=== PATIENT | female | born 1955 | race Caucasian/White ===

== ENCOUNTER 2017-02-13 09:48 | Emergency (ER) | payer OTHER ==
[~2017-02-13] VITALS: Ht 152.4 cm; Wt 70.0 kg
[~2017-02-13 09:48] MED LIST: ASPEC81 PO; BUPRTAB51 PO; CLXUNK PO; LPT40 PO; NTRSLP4 SL; PLV75 PO; TPRSR25 PO
[2017-02-13 09:50] VITALS: Ht 152.4 cm; Wt 70.0 kg
[2017-02-13] MEDS ORDERED: CITA40TA12 PO (10:16)
[2017-02-13] MEDS ORDERED: ASPCH81X PO (10:16)
[2017-02-13] MEDS ORDERED: METO25TA3 PO (10:16)
[2017-02-13] MEDS ORDERED: LOSA1TAB PO (10:16)
[2017-02-13] MEDS ORDERED: CLOP1TAB15 PO (10:16)
[2017-02-13] MEDS ORDERED: NTRGSL/4 UT (10:20)
--- NOTE | 2017-02-13 10:49 | EMERGENCY ROOM VISIT NOTE ---
History Report prepared by Claude: Aneat Messina Under the Supervision of: Dr. Dimitrios Paulson M.D. First contact with patient: 10:13 Chief Complaint: FALL Stated Complaint: FALL History of Present Illness The patient is a 61 year old female who presents to the Emergency Room with complaints of persistent back pain after falling this morning around 0800. She was in a [place] this morning and tripped and fell outside. She skidded after falling and scraped her forehead. She also had some epistaxis. She also has pain in her left hand and left knee. She denies any loss of consciousness. Her vision and hearing are normal currently. She denies any neck pain, chest pain, or abdominal pain. She reports that the medications she started taking after her heart attack cause her to bruise more easily. Source of History: patient Onset: this morning 0800 Position: back Quality: other (pain, fall) Timing: other (persistent) Associated Symptoms: No LOC, No abdominal pain, No chest pain, No neck pain Note: Pt reports epistaxis, left hand pain, left knee pain. Pt denies hearing or vision changes. Review of Systems All systems have been listed, reviewed, and are negative other than those previously mentioned. Please see Additional Medical History Sheet. Past Medical & Surgical Medical Problems: (1) Chest pain (2) Depression (3) Hx of sebaceous cyst (4) NSTEMI (non-ST elevated myocardial infarction) (5) Pneumonia (6) PTSD (post-traumatic stress disorder) Surgical Problems: (1) H/O breast surgery (2) H/O tubal ligation (3) S/P tonsillectomy Family History Cancer FATHER (brain CA) MOTHER (breast CA) Diabetes mellitus Heart disease Hypertension Social History Smoking Status: Never Smoker Alcohol Use: occasionally Drug Use: none Marital Status: in relationship Housing Status: lives with family Occupation Status: retired Current/Historical Medications Scheduled Aspirin (Aspirin Chewable), 81 MG PO DAILY Atorvastatin (Lipitor), 80 MG PO DAILY Bupropion Hcl (Wellbutrin Xl), 300 MG PO DAILY Citalopram Hydrobromide (Celexa), 40 MG PO DAILY Clopidogrel (Plavix), 75 MG PO DAILY Lorazepam (Ativan), 0.5 MG PO HS Losartan Potassium (Cozaar), 12.5 MG PO DAILY Metoprolol Succinate (Toprol Xl), 12.5 MG PO DAILY Scheduled PRN Acetaminophen (Tylenol), 1,000 MG PO UD PRN for Pain Albuterol Hfa (Ventolin Hfa), 2 PUFFS INH QID PRN for Wheezing Furosemide (Lasix), 20 MG PO DAILY PRN for SWELLING Nitroglycerin (Nitrostat), 0.4 MG UT PRN PRN for CHEST PAIN Allergies Coded Allergies: Topiramate (Verified Allergy, Unknown, blepharospsams, 02/13/17) Prednisone (Verified Adverse Reaction, Unknown, overly emotional reactions , 02/13/17) Physical Exam Vital Signs Date Time Temp Pulse Resp B/P Pulse Ox O2 Delivery O2 Flow Rate FiO2 02/13/17 11:54 36.6 59 18 163/83 96 02/13/17 09:50 36.6 63 18 153/82 96 Room Air Physical Exam GENERAL: Patient awake, alert, oriented x 3. Patient follows commands. Patient does not appear toxic. Patient is adequately hydrated and well- nourished. SKIN: No erythema, pallor, cyanosis or rash HEENT: Abrasions to the nose and left upper lip with significant swelling. Patient feels like teeth are chipped, but there are no obvious chips. No hemotympanum, Mccall's sign, or raccoon's sign. Neck: supple, nontender. Nose is slightly tender but no hematoma within the nose. No deviation of the nose. LUNGS: Clear to auscultation. No wheezes, no rales, no rhonchi. HEART: No murmurs. No gallops. No rubs ABDOMEN: No masses, no rebound, no hepatomegaly or splenomegaly. BACK: Tenderness near left scapula, no bruising noted on back. EXTREMITIES: Left knee slightly swollen, but full ROM. Left wrist abrasion with underlying tenderness. Bruising over her left 3rd, 4th, and 5th metacarpals and fingers. NEUROLOGIC: Cranial nerves II-XII within normal limits. No gross motor sensory function deficits. Medical Decision & Procedures ER Provider Diagnostic Interpretation: X ray results are stated below per my interpretation and the radiologist's interpretation. CHEST 2 VIEWS ROUTINE CLINICAL HISTORY: Scapular pain status post trauma COMPARISON STUDY: 05/21/2017 FINDINGS: The cardiac and mediastinal contours remain stable. There is no failure. There is no focal pulmonary consolidation. There are mid thoracic compression deformities which are likely old. There is a chronic deformity of the left humeral head and scapular glenoid. IMPRESSION: No active disease in the chest. Electronically signed by: Wayne Stern M.D. 02/13/2017 10:55 AM Dictated Date/Time: 02/13/2017 10:54 AM LEFT HAND MIN 3 VIEWS ROUTINE CLINICAL HISTORY: Left hand pain status post trauma COMPARISON: None. DISCUSSION: The bones are osteopenic. There are mild osteoarthritic changes present. There is a corticated ossicle adjacent the ulnar styloid. This is felt to be old. No acute fractures are evident. IMPRESSION: Mild degenerative change. Osteopenia. No acute fractures. Electronically signed by: Wayne Stern M.D. 02/13/2017 10:59 AM Dictated Date/Time: 02/13/2017 10:58 AM LEFT WRIST MIN 3 VIEWS ROUTINE CLINICAL HISTORY: Left wrist pain status post trauma COMPARISON: None. DISCUSSION: The bones are osteopenic. There is a corticated ossicle adjacent to the ulnar styloid. This is felt to be old. No acute fractures or dislocations are visualized. IMPRESSION: Osteopenia. No acute fractures. Electronically signed by: Wayne Stern M.D. 02/13/2017 10:58 AM Dictated Date/Time: 02/13/2017 10:57 AM Medications Administered Medications (Trade) Dose Ordered Sig/Jason Route Start Time Stop Time Status Last Admin Dose Admin Bacitracin (Bacitracin Oint) 1 appln NOW ONCE EXT 02/13/17 11:30 02/13/17 11:31 DC 02/13/17 11:46 1 APPLN ED Course 1014: Past medical records reviewed. The patient was evaluated in room A9B. A complete history and physical examination was performed. 1130: Bacitracin 1 appln EXT. 1123: Upon reevaluation, the patient appeared to have improvement of her symptoms. I discussed today's findings with her. She verbalized agreement of the treatment plan. She was discharged home. Medical Decision Differential diagnoses: rib fracture, fracture of wrist or hand, multiple contusions and abrasions. The patient fell and has multiple abrasions of her face, left wrist and left hand. X-rays were obtained but do not reveal any fracture dislocations or subluxations. Patient's tetanus status is up-to-date. Patient does not appear to have a nasal fracture. She has no signs of intracranial head injury or neck injury. Chest x-ray does not reveal a rib fracture hemopneumothorax or pneumothorax. I believe the patient is safe to return home. She is taking acetaminophen as needed for pain. She was given wound care instructions. Impression Primary Impression: Fall Additional Impression: Contusion of multiple sites Scribe Attestation The scribe's documentation has been prepared under my direction and personally reviewed by me in its entirety. I confirm that the note above accurately reflects all work, treatment, procedures, and medical decision making performed by me. Departure Information Dispostion Home / Self-Care Referrals Pushpa Singh D.O. (PCP) Patient Instructions ED Wound Care, [facility] Additional Instructions Apply ice intermittently over the next 48 hours. 650 mg of acetaminophen every 4 hours as needed for pain. Apply antibiotic ointment to your face daily. Problem Qualifiers
--- NOTE | 2017-02-13 10:57 | DIAGNOSTIC IMAGING REPORT ---
CHEST 2 VIEWS ROUTINE CLINICAL HISTORY: Scapular pain status post trauma COMPARISON STUDY: 05/21/2017 FINDINGS: The cardiac and mediastinal contours remain stable. There is no failure. There is no focal pulmonary consolidation. There are mid thoracic compression deformities which are likely old. There is a chronic deformity of the left humeral head and scapular glenoid. IMPRESSION: No active disease in the chest. Electronically signed by: Wayne Stern M.D. 02/13/2017 10:55 AM Dictated Date/Time: 02/13/2017 10:54 AM
--- NOTE | 2017-02-13 11:00 | DIAGNOSTIC IMAGING REPORT ---
LEFT WRIST MIN 3 VIEWS ROUTINE CLINICAL HISTORY: Left wrist pain status post trauma COMPARISON: None. DISCUSSION: The bones are osteopenic. There is a corticated ossicle adjacent to the ulnar styloid. This is felt to be old. No acute fractures or dislocations are visualized. IMPRESSION: Osteopenia. No acute fractures. Electronically signed by: Wayne Stern M.D. 02/13/2017 10:58 AM Dictated Date/Time: 02/13/2017 10:57 AM
--- NOTE | 2017-02-13 11:01 | DIAGNOSTIC IMAGING REPORT ---
LEFT HAND MIN 3 VIEWS ROUTINE CLINICAL HISTORY: Left hand pain status post trauma COMPARISON: None. DISCUSSION: The bones are osteopenic. There are mild osteoarthritic changes present. There is a corticated ossicle adjacent the ulnar styloid. This is felt to be old. No acute fractures are evident. IMPRESSION: Mild degenerative change. Osteopenia. No acute fractures. Electronically signed by: Wayne Stern M.D. 02/13/2017 10:59 AM Dictated Date/Time: 02/13/2017 10:58 AM
[2017-02-13] MEDS ORDERED: BACITRACIN OINT 15 GM TUBE EXT ONE (11:30)
[2017-02-13 11:54] VITALS: BP 163/83; PULSE 59; TEMP 36.6; O2SAT 96
[2017-02-28] MEDS ORDERED: LORA-741 PO (10:16)
[2017-02-28] MEDS ORDERED: ATOR-26 PO (10:16)
[2017-02-28] MEDS ORDERED: VNTHFA/IN INH (10:16)
[2017-02-28] MEDS ORDERED: FURO-85 PO (10:16)
[2017-02-28] MEDS ORDERED: ACET-1256 PO (10:16)
== END 2017-02-13 11:57 | disposition home or self-care (01) ==
LOC: C.EDB 09:49 → C.EDA 11:57
DX: T14.8 Other injury of unspecified body region (principal); W19.XXXA Unspecified fall, initial encounter; I25.2 Old myocardial infarction; F32.9 Major depressive disorder, single episode, unspecified; Z98.51 Tubal ligation status; Z79.82 Long term (current) use of aspirin; Z79.899 Other long term (current) drug therapy; Z98.890 Other specified postprocedural states; Z88.8 Allergy status to other drugs, medicaments and biological substances; Z80.9 Family history of malignant neoplasm, unspecified; Z83.3 Family history of diabetes mellitus; Z82.49 Family history of ischemic heart disease and other diseases of the circulatory system

== ENCOUNTER 2017-02-28 16:21 | Emergency (ER) | payer OTHER ==
[~2017-02-28] VITALS: Ht 157.5 cm; Wt 71.2 kg
[~2017-02-28 16:21] MED LIST changes: +ACET-1256 PO; +ASPCH81X PO; -ASPEC81 PO; +ATOR-26 PO; +CITA40TA12 PO; +CLOP1TAB15 PO; -CLXUNK PO; +FURO-85 PO; +LORA-741 PO; +LOSA1TAB PO; -LPT40 PO; +METO25TA3 PO; +NTRGSL/4 UT; -NTRSLP4 SL; -PLV75 PO; -TPRSR25 PO; +VNTHFA/IN INH
[2017-02-28 16:33] VITALS: TEMP 37.1; Ht 157.5 cm; Wt 71.2 kg
[2017-02-28] MEDS ORDERED: CYCLOBENZAPRINE HCL 10 MG TAB PO STA (17:23)
[2017-02-28] MEDS ORDERED: HYDROCODONE/ACETAMOPHEN 5/325MG TAB PO STA (17:23)
[2017-02-28] MEDS ORDERED: KETOROLAC TROMETHAMINE 60 MG/2 ML VIAL IM STA (17:25)
[2017-02-28] MEDS ORDERED: CITA40TA4 PO (17:36)
[2017-02-28] MEDS ORDERED: TPRSR/25 PO (17:36)
[2017-02-28] MEDS ORDERED: NITR0.4S UT (17:36)
[2017-02-28] MEDS ORDERED: WLLXL300 PO (17:36)
[2017-02-28] MEDS ORDERED: PLV75 PO (17:36)
--- NOTE | 2017-02-28 17:38 | EMERGENCY ROOM VISIT NOTE ---
History Report prepared by Claude: Aneta Messina Under the Supervision of: Dr. Marla Pate M.D. First contact with patient: 17:08 Chief Complaint: NECK PAIN Stated Complaint: PAIN THE WHOLE RIGHT SIDE OF BODY History of Present Illness The patient is a 61 year old female who presents to the Emergency Room with complaints of persistent right sided pain of the body starting 1 week ago. She presents to the ED by EMS. She describes the pain as sharp and says it feels like there is a srinivas through her body. She reports pain in the right side of her neck and right wrist and elbow down to her fingertips. The pain worsens with movement. She also has pain down to her mid back. She started having a headache a few days ago. She reports some weakness in her right arm and her fingers are numb. She has been taking Tylenol to no significant relief. Two weeks ago, she was walking outside when she fell onto her left side. She fractured her left wrist, but did not injure her right side. She denies any chronic medical problems. Source of History: patient Onset: 1 week ago Position: other (right side of body) Quality: sharp Timing: other (persistent) Modifying Factors (Worsening): movement Associated Symptoms: + back pain, + headache, + neck pain (right side) Note: Pt reports right arm pain and weakness, finger numbness. Review of Systems See HPI for pertinent positives & negatives. A total of 10 systems reviewed and were otherwise negative. Past Medical & Surgical Medical Problems: (1) Chest pain (2) Depression (3) Hx of sebaceous cyst (4) NSTEMI (non-ST elevated myocardial infarction) (5) Pneumonia (6) PTSD (post-traumatic stress disorder) Surgical Problems: (1) H/O breast surgery (2) H/O tubal ligation (3) S/P tonsillectomy Family History Cancer FATHER (brain CA) MOTHER (breast CA) Diabetes mellitus Heart disease Hypertension Social History Smoking Status: Never Smoker Alcohol Use: occasionally Drug Use: none Marital Status: in relationship Housing Status: lives with family Occupation Status: retired Current/Historical Medications Scheduled Aspirin (Aspirin Ec), 81 MG PO DAILY Atorvastatin (Lipitor), 80 MG PO DAILY Bupropion HCl (Bupropion HCl Xl), 300 MG PO DAILY Citalopram (Citalopram Hydrobromide), 40 MG PO DAILY Clopidogrel Bisulfate (Clopidogrel), 75 MG PO DAILY Lorazepam (Ativan), 0.5 MG PO HS Losartan Potassium (Losartan Potassium), 12.5 MG PO DAILY Metoprolol Succinate (Metoprolol Succinate ER), 12.5 MG PO DAILY Scheduled PRN Acetaminophen (Tylenol), 1,000 MG PO UD PRN for Pain Albuterol Hfa (Ventolin Hfa), 2 PUFFS INH QID PRN for Wheezing Cyclobenzaprine Hcl (Flexeril), 5 MG PO TID PRN for Muscle Spasms Furosemide (Lasix), 20 MG PO DAILY PRN for Swelling Hydrocodone/Acetaminophen 5MG/325MG ([place] 5MG/325MG), 1 TABLET PO Q6 PRN for Pain Nitroglycerin (Nitrostat), 0.4 MG UT UD PRN for Chest Pain Allergies Coded Allergies: Topiramate (Verified Allergy, Unknown, blepharospsams, 02/13/17) Prednisone (Verified Adverse Reaction, Unknown, overly emotional reactions , 02/13/17) Physical Exam Vital Signs Date Time Temp Pulse Resp B/P Pulse Ox O2 Delivery O2 Flow Rate FiO2 02/28/17 19:33 62 16 128/70 96 02/28/17 18:17 59 18 127/68 96 02/28/17 16:33 37.1 66 16 138/85 99 Room Air Physical Exam Vital signs reviewed. General: Generally well-appearing, in some discomfort, in no significant distress. HEENT: No scleral icterus, PERRLA, neck supple. Atraumatic. Cardiovascular: Regular rate and rhythm, no extra sounds. Pulmonary: Clear to auscultation bilaterally, normal work of breathing. Abdomen: Soft, nontender, nondistended, positive bowel sounds. Musculoskeletal: Tenderness along the right trapezius, slight torticollis, pain with any movement of the head, ROM limited due to pain. Neurologic: Patient awake alert and oriented x 3, full strength in all 4 extremities. Cranial nerves 2 through 12 grossly intact. Skin: Warm, dry, no rash Medical Decision & Procedures ER Provider Diagnostic Interpretation: Radiology results as stated below per my review and radiologist interpretation: CT HEAD WITHOUT CONTRAST (CT) CLINICAL HISTORY: Severe headache COMPARISON STUDY: No previous studies for comparison. TECHNIQUE: Axial CT of the brain is performed from the vertex to the skull base. IV contrast was not administered for this examination. CT DOSE: FINDINGS: No intra or extra-axial mass lesions are visualized. There is no CT evidence of acute cortical infarction. There is no evidence of midline shift. There is no acute hemorrhage. No calvarial fractures are visualized. There are patchy minimal matter hypodensities likely on a small vessel basis. There is mild bifrontal atrophy. There is no evidence of pathologic ventricular dilatation. There is no evidence of acute sinusitis IMPRESSION: No acute intracranial findings Electronically signed by: Wayne Stern M.D. 02/28/2017 6:06 PM Dictated Date/Time: 02/28/2017 6:[address] OF THE CERVICAL SPINE CLINICAL HISTORY: Neck pain. Trauma., Torticollis. COMPARISON STUDY: No previous studies for comparison. CT DOSE: 935.54 mGy.cm TECHNIQUE: CT scan of the cervical spine was performed from the skull base to the thoracic inlet. Images are reviewed in the axial, sagittal, and coronal planes. IV contrast was not administered for this examination. FINDINGS: There is a 3 cm lower pole left lobe thyroid nodule. Nonemergent thyroid ultrasonography is recommended in follow-up. There is no evidence of the thorax. There is a minimal inferior left-sided mastoid effusion The prevertebral soft tissues are normal. No fractures or traumatic subluxations are visualized. There is minimal anterolisthesis of C4 on C5. This is felt to be degenerative. There are multilevel degenerative changes most pronounced the C5-6 level. IMPRESSION: 1. No evidence of acute fracture or traumatic subluxation 2. 3 cm lower pole left lobe thyroid nodule. Nonemergent thyroid ultrasonography is recommended in follow-up Electronically signed by: Wayne Stern M.D. 02/28/2017 6:13 PM Dictated Date/Time: 02/28/2017 6:10 PM Medications Administered Medications (Trade) Dose Ordered Sig/Jason Route Start Time Stop Time Status Last Admin Dose Admin Cyclobenzaprine HCl (Flexeril Tab) 5 mg NOW STAT PO 02/28/17 17:23 02/28/17 17:25 DC 02/28/17 17:38 5 MG Acetaminophen/ Hydrocodone Bitart ([place] 5/325 Tab) 1 tab NOW STAT PO 02/28/17 17:23 02/28/17 17:26 DC 02/28/17 17:37 1 TAB Ketorolac Tromethamine (Toradol Inj) 60 mg NOW STAT IM 02/28/17 17:25 02/28/17 17:27 DC 02/28/17 17:38 60 MG Acetaminophen/ Hydrocodone Bitart ([place] 5/325mg Home Pack) 1 homepack UD ONCE PO 02/28/17 19:15 02/28/17 19:16 DC 02/28/17 19:27 1 HOMEPACK ED Course 171: Past medical records reviewed. The patient was evaluated in room B11B. A complete history and physical examination was performed. 172: Prednisone 60 mg PO, [place] 5/325 Tab 1 tab PO, Flexeril Tab 5 mg PO. 1724: Toradol Inj 60 mg IM. 1899: Upon reevaluation, the patient appeared to have improvement of her symptoms. I discussed findings with her. She verbalized agreement of the treatment plan. She was discharged home. 1914: Acetaminophen/Hydrocodone Bitart 1 homepack PO. Medical Decision Differential diagnosis: muscle spasm, radiculopathy, disc herniation, spinal stenosis, infectious etiology. This patient was evaluated and appeared to be in some discomfort. Patient was given 5 mg of Flexeril, one tablet [place] and IM Toradol. CT scan of the head and neck was performed and reveals no evidence of acute findings. Patient was informed of the findings. She was discharged with a prescription for [place] and Flexeril. She will continue ibuprofen as needed for pain with food. She'll follow-up with primary care physician for reevaluation return to the ER for worsening of symptoms or any medical concerns. [place] Drug Monitoring Program Search Results: patient reviewed within database, no issues identified Impression Primary Impression: Torticollis, acute Scribe Attestation The scribe's documentation has been prepared under my direction and personally reviewed by me in its entirety. I confirm that the note above accurately reflects all work, treatment, procedures, and medical decision making performed by me. Departure Information Dispostion Home / Self-Care Prescriptions Hydrocodone/Acetaminophen 5MG/325MG ([place] 5MG/325MG) Tab 1 TABLET PO Q6 Y for Pain, #20 TAB Prov: Marla Pate M.D. 02/28/17 Cyclobenzaprine Hcl (FLEXERIL) 5 Mg Tab 5 MG PO TID Y for Muscle Spasms, #20 TAB Prov: Marla Pate M.D. 02/28/17 Referrals Pushpa Singh D.O. (PCP) Forms HOME CARE DOCUMENTATION FORM, IMPORTANT VISIT INFORMATION, WORK / SCHOOL INSTRUCTIONS Patient Instructions My [facility] Additional Instructions Diagnosis: Torticollis Flexeril 5 mg 3 times daily as needed for muscular spasm. [place] 5 mg every 6 hours as needed for pain. Ibuprofen 600 mg every 6 hours as needed for pain with food. Drink plenty of clear fluids. Warm compresses and gentle stretching. Follow-up with your physician this week for reevaluation return to the ER for worsening of symptoms or any medical concerns.
[2017-02-28] MEDS ORDERED: CZR25 PO (17:39)
[2017-02-28] MEDS ORDERED: ASPI81TA28 PO (17:39)
--- NOTE | 2017-02-28 18:07 | DIAGNOSTIC IMAGING REPORT ---
CT HEAD WITHOUT CONTRAST (CT) CLINICAL HISTORY: Severe headache COMPARISON STUDY: No previous studies for comparison. TECHNIQUE: Axial CT of the brain is performed from the vertex to the skull base. IV contrast was not administered for this examination. CT DOSE: FINDINGS: No intra or extra-axial mass lesions are visualized. There is no CT evidence of acute cortical infarction. There is no evidence of midline shift. There is no acute hemorrhage. No calvarial fractures are visualized. There are patchy minimal matter hypodensities likely on a small vessel basis. There is mild bifrontal atrophy. There is no evidence of pathologic ventricular dilatation. There is no evidence of acute sinusitis IMPRESSION: No acute intracranial findings Electronically signed by: Wayne Stern M.D. 02/28/2017 6:06 PM Dictated Date/Time: 02/28/2017 6:05 PM
--- NOTE | 2017-02-28 18:14 | DIAGNOSTIC IMAGING REPORT ---
CT OF THE CERVICAL SPINE CLINICAL HISTORY: Neck pain. Trauma., Torticollis. COMPARISON STUDY: No previous studies for comparison. CT DOSE: 935.54 mGy.cm TECHNIQUE: CT scan of the cervical spine was performed from the skull base to the thoracic inlet. Images are reviewed in the axial, sagittal, and coronal planes. IV contrast was not administered for this examination. FINDINGS: There is a 3 cm lower pole left lobe thyroid nodule. Nonemergent thyroid ultrasonography is recommended in follow-up. There is no evidence of the thorax. There is a minimal inferior left-sided mastoid effusion The prevertebral soft tissues are normal. No fractures or traumatic subluxations are visualized. There is minimal anterolisthesis of C4 on C5. This is felt to be degenerative. There are multilevel degenerative changes most pronounced the C5-6 level. IMPRESSION: 1. No evidence of acute fracture or traumatic subluxation 2. 3 cm lower pole left lobe thyroid nodule. Nonemergent thyroid ultrasonography is recommended in follow-up Electronically signed by: Wayne Stern M.D. 02/28/2017 6:13 PM Dictated Date/Time: 02/28/2017 6:10 PM
[2017-02-28] MEDS ORDERED: HYDR-5688 PO (19:12)
[2017-02-28] MEDS ORDERED: CYCL5TAB PO (19:12)
[2017-02-28] MEDS ORDERED: NORCO 5/325MG HOME PACK PO ONE (19:15)
[2017-02-28 19:33] VITALS: BP 128/70; PULSE 62; O2SAT 96
== END 2017-02-28 19:37 | disposition home or self-care (01) ==
LOC: EDBD 16:21 → C.EDB 16:23
DX: M43.6 Torticollis (principal); F32.9 Major depressive disorder, single episode, unspecified; I25.2 Old myocardial infarction; Z98.51 Tubal ligation status; Z98.890 Other specified postprocedural states; Z79.82 Long term (current) use of aspirin; Z79.899 Other long term (current) drug therapy; Z80.9 Family history of malignant neoplasm, unspecified; Z83.3 Family history of diabetes mellitus; Z82.49 Family history of ischemic heart disease and other diseases of the circulatory system; Z88.8 Allergy status to other drugs, medicaments and biological substances

== ENCOUNTER → 2017-05-05 | Outpatient (CLI) | payer OTHER ==
[~2017-05-05] MED LIST changes: -ASPCH81X PO; +ASPI81TA28 PO; -BUPRTAB51 PO; -CITA40TA12 PO; +CITA40TA4 PO; -CLOP1TAB15 PO; +CZR25 PO; +HYDR-5688 PO; -LOSA1TAB PO; -METO25TA3 PO; +NITR0.4S UT; -NTRGSL/4 UT; +PLV75 PO; +TPRSR/25 PO; +WLLXL300 PO
--- NOTE | 2017-05-05 08:29 | DIAGNOSTIC IMAGING REPORT ---
DOUBLE CONTRAST BARIUM ESOPHAGRAM CLINICAL HISTORY: Dysphagia with solids. COMPARISON STUDY: No priors. TECHNIQUE: A standard air contrast barium esophagram is performed. Multiple spot images of the esophagus are acquired both upright and prone. FINDINGS: The patient swallowed barium and the barium pill without difficulty. The mucosal pattern is normal. There is no evidence of intrinsic or extrinsic mass lesion. No aspiration was seen. The gastroesophageal junction distended normally. Gastroesophageal reflux was observed during the examination. There is a small hiatal hernia. Fluoroscopy time: 1.1 minutes. Fluoroscopic images: 24 IMPRESSION: 1. The esophagus is morphologically normal. The patient swallowed barium and the barium pill without difficulty. 2. Gastroesophageal reflux was observed. 3. Small hiatal hernia. Electronically signed by: Cj Hansen M.D. 05/05/2017 8:28 AM Dictated Date/Time: 05/05/2017 8:27 AM
== END | disposition home or self-care (01) ==
LOC: C.RAD 07:30
PROVIDERS: ATTEND Otolaryngology
DX: R13.10 Dysphagia, unspecified (principal); E04.9 Nontoxic goiter, unspecified; R22.1 Localized swelling, mass and lump, neck

== ENCOUNTER 2017-11-25 22:35 | Emergency (ER) | payer OTHER ==
[~2017-11-25] VITALS: Ht 152.4 cm; Wt 72.6 kg
[~2017-11-25 22:35] MED LIST changes: -HYDR-5688 PO
[2017-11-25 22:39] VITALS: Ht 152.4 cm; Wt 72.6 kg
[2017-11-25] MEDS ORDERED: SODIUM CHLORIDE 0.9% 1000ML 1,000 ML IV STA (23:52)
[2017-11-25] MEDS ORDERED: BISACODYL 10 MG SUPP PR STA (23:52)
[2017-11-25] MEDS ORDERED: SODIUM CHLORIDE 0.9% 500ML 500 ML IV STA (23:52)
[2017-11-25] MEDS ORDERED: SALI0.6510 NAE (23:56)
--- NOTE | 2017-11-26 00:11 | EMERGENCY ROOM VISIT NOTE ---
History Report prepared by Claude: Hayden Day Under the Supervision of: Dr. Marla Pate M.D. First contact with patient: 23:50 Chief Complaint: GI ASSESSMENT Stated Complaint: CRAMPING, DIARRHEA, FECAL IMPACTION? History of Present Illness The patient is a 62 year old female who presents to the Emergency Room with complaints of persistent constipation for the past several days. The patient states that she had surgery on her thyroid on November 16, and she states that she does not remember the last time she had a bowel movement. She states that she only took 4 pain pills. She states that she is having intermittent abdominal pain, and she states that she feels like she has to defecate, but she is unable to. She is also having some rectal pain. The patient states that she has tried 2 fleets enemas, MiraLax, and Dulcolax PO. She states that she has never had a problem with her bowels in the past. Source of History: patient Onset: the past while Position: other (global) Quality: other (constipation) Timing: other (persistent) Associated Symptoms: + abdominal pain Note: Associated symptoms: Rectal pain. Review of Systems See HPI for pertinent positives & negatives. A total of 10 systems reviewed and were otherwise negative. Past Medical & Surgical Medical Problems: (1) Chest pain (2) Depression (3) Hx of sebaceous cyst (4) NSTEMI (non-ST elevated myocardial infarction) (5) Pneumonia (6) PTSD (post-traumatic stress disorder) Surgical Problems: (1) H/O breast surgery (2) H/O tubal ligation (3) S/P tonsillectomy Family History Cancer FATHER (brain CA) MOTHER (breast CA) Diabetes mellitus Heart disease Hypertension Social History Smoking Status: Former Smoker Alcohol Use: occasionally Drug Use: none Marital Status: , in relationship Housing Status: lives with family Occupation Status: retired Current/Historical Medications Scheduled Aspirin (Aspirin Ec), 81 MG PO DAILY Atorvastatin (Lipitor), 80 MG PO DAILY Bupropion HCl (Bupropion HCl Xl), 300 MG PO DAILY Citalopram (Citalopram Hydrobromide), 40 MG PO DAILY Losartan Potassium (Losartan Potassium), 12.5 MG PO DAILY Metoprolol Succinate (Metoprolol Succinate ER), 12.5 MG PO DAILY Scheduled PRN Acetaminophen (Tylenol), 500 MG PO Q6 PRN for Pain Albuterol Hfa (Ventolin Hfa), 2 PUFFS INH QID PRN for Wheezing Furosemide (Lasix), 20 MG PO DAILY PRN for Swelling Nitroglycerin (Nitrostat), 0.4 MG UT UD PRN for Chest Pain Saline (Ralls Nasal [place]), 2 SPRAYS IGOR Q1H PRN for DRYNESS Allergies Coded Allergies: Topiramate (Verified Allergy, Unknown, blepharospsams, 11/25/17) Prednisone (Verified Adverse Reaction, Unknown, overly emotional reactions , 11/25/17) Physical Exam Vital Signs Date Time Temp Pulse Resp B/P (MAP) Pulse Ox O2 Delivery O2 Flow Rate FiO2 11/26/17 05:32 36.8 79 20 142/90 97 11/26/17 05:21 79 20 142/90 97 Room Air 11/26/17 04:15 86 91 11/26/17 04:01 144/78 11/26/17 04:00 85 94 11/26/17 03:45 86 95 11/26/17 03:30 131/83 11/26/17 02:36 85 18 149/75 93 Room Air 11/26/17 01:41 149/75 96 Room Air 11/25/17 23:22 86 19 147/ 93 Room Air 11/25/17 22:39 36.8 103 20 137/83 95 Room Air Physical Exam Vital signs reviewed. General: Well-appearing female, in some discomfort. HEENT: No scleral icterus, PERRLA, neck supple. Atraumatic. Cardiovascular: Regular rate and rhythm, no extra sounds. Pulmonary: Clear to auscultation bilaterally, normal work of breathing. Abdomen: Suprapubic tenderness into the left lower quadrant. Soft, nondistended , positive bowel sounds. Rectal: Pain on rectal exam with a ball of stool palpated in the vault. Musculoskeletal: Atraumatic, no peripheral edema. Neurologic: Patient awake alert and oriented x 3. Skin: Warm, dry, no rash Medical Decision & Procedures ER Provider Diagnostic Interpretation: X-ray results as stated below per interpretation by me: Abdomen 2 View: Fecal retention, no obstruction, no FA Radiology results as stated below per my review and radiologist interpretation: CT ABDOMEN & PELVIS With Contrast: There is fecal distention of the distal colon suggestive of impaction. Perirectal/presacral edema. Moderate colonic stool in remainder of colon. No bowel obstruction. No evidence for appendicitis. Hiatal hernia. Fat-containing left diaphragmatic hernia. Suspected fibroid uterus and other incidental findings. Radiologist: Ck Gunter M.D Laboratory Results 11/26/17 00:22 Red Blood Count 4.63, Mean Corpuscular Volume 93.7, Mean Corpuscular Hemoglobin 32.2, Mean Corpuscular Hemoglobin Concent 34.3, Mean Platelet Volume 9.2, Neutrophils (%) (Auto) 72.1, Lymphocytes (%) (Auto) 18.4, Monocytes (%) (Auto) 8.0, Eosinophils (%) (Auto) 1.0, Basophils (%) (Auto) 0.3, Neutrophils # (Auto) 7.74, Lymphocytes # (Auto) 1.97, Monocytes # (Auto) 0.86, Eosinophils # (Auto) 0.11, Basophils # (Auto) 0.03 11/26/17 00:22 11/26/17 01:14 Test 11/26/17 00:22 11/26/17 01:14 White Blood Count 10.73 K/uL (4.8-10.8) Red Blood Count 4.63 M/uL (4.2-5.4) Hemoglobin 14.9 g/dL (12.0-16.0) Hematocrit 43.4 % (37-47) Mean Corpuscular Volume 93.7 fL (80-100) Mean Corpuscular Hemoglobin 32.2 pg (25-34) Mean Corpuscular Hemoglobin Concent 34.3 g/dl (32-36) Platelet Count 278 K/uL (130-400) Mean Platelet Volume 9.2 fL (7.4-10.4) Neutrophils (%) (Auto) 72.1 % Lymphocytes (%) (Auto) 18.4 % Monocytes (%) (Auto) 8.0 % Eosinophils (%) (Auto) 1.0 % Basophils (%) (Auto) 0.3 % Neutrophils # (Auto) 7.74 K/uL (1.4-6.5) Lymphocytes # (Auto) 1.97 K/uL (1.2-3.4) Monocytes # (Auto) 0.86 K/uL (0.11-0.59) Eosinophils # (Auto) 0.11 K/uL (0-0.5) Basophils # (Auto) 0.03 K/uL (0-0.2) RDW Standard Deviation 43.6 fL (36.4-46.3) RDW Coefficient of Variation 12.8 % (11.5-14.5) Immature Granulocyte % (Auto) 0.2 % Immature Granulocyte # (Auto) 0.02 K/uL (0.00-0.02) Anion Gap 9.0 mmol/L (3-11) Est Creatinine Clear Calc Drug Dose 53.2 ml/min Estimated GFR () 73.4 Estimated GFR (Non- 63.3 BUN/Creatinine Ratio 16.4 (10-20) Calcium Level 9.3 mg/dl (8.5-10.1) Total Bilirubin 1.4 mg/dl (0.2-1) Alanine Aminotransferase (ALT/SGPT) 26 U/L (12-78) Alkaline Phosphatase 87 U/L (45-117) Total Protein 7.7 gm/dl (6.4-8.2) Albumin 3.9 gm/dl (3.4-5.0) Lipase 101 U/L (73-393) Direct Bilirubin 0.3 mg/dl (0-0.2) Aspartate Amino Transf (AST/SGOT) 11 U/L (15-37) Laboratory results per my review. Medications Administered Medications (Trade) Dose Ordered Sig/Jason Route Start Time Stop Time Status Last Admin Dose Admin Sodium Chloride 500 ml @ 999 mls/hr Q31M STAT IV 11/25/17 23:52 11/26/17 00:22 DC 11/26/17 00:23 999 MLS/HR Sodium Chloride 1,000 ml @ 150 mls/hr Q6H40M STAT IV 11/25/17 23:52 11/26/17 06:31 DC 11/26/17 00:24 150 MLS/HR Bisacodyl (Dulcolax Supp) 10 mg NOW STAT OH 11/25/17 23:52 11/25/17 23:55 DC 11/26/17 00:23 10 MG Miscellaneous (Soap Suds Enema) 1 ea NOW STAT OH 11/26/17 02:54 11/26/17 02:56 DC 11/26/17 04:42 1 ED Course 2350: Past medical records reviewed. The patient was evaluated in room B11. A complete history and physical examination was performed. 2352: Dulcolax Supp 10mg OH, Sodium Chloride 1000 ml @ 150 mls/hr IV, Sodium Chloride 500 ml @ 999 mls/hr IV 0254: Soap Suds Enema OH 0257: I reevaluated the patient, and I updated her on the treatment plan. 0540: Upon reevaluation, the patient appeared to have improvement of her symptoms. I discussed findings with her. She verbalized agreement of the treatment plan. She was discharged home. Medical Decision Differential diagnoses include: diverticulitis, constipation, bowel obstruction , UTI, and kidney stone. This pt was evaluated and appeared to be in no distress. IV access was obtained and lab work was drawn. Pt was hydrated with NSS. Abd XR is concerning for fecal retention, but with the pt's tender LLQ a CT was ordered to r/o diverticulitis. This study reveals a fecal impaction of the rectum. Pt was unable to tolerate a manual disimpaction on my initial exam. She was given a Dulcolax rectal suppository. A soap suds enema was given with large results. Pt tolerated the procedure without difficulty. Pt was advised to use miralax daily for BM. She will f/u with her PCP this week and return to the ED for worsening of symptoms or any medical concerns. Medication Reconcilliation Current Medication List: was personally reviewed by me Blood Pressure Screening Patient's blood pressure: Elevated blood pressure Blood pressure disposition: Elevated BP felt to be situational Impression Primary Impression: Constipation Scribe Attestation The scribe's documentation has been prepared under my direction and personally reviewed by me in its entirety. I confirm that the note above accurately reflects all work, treatment, procedures, and medical decision making performed by me. Departure Information Dispostion Home / Self-Care Referrals Pushpa Singh D.O. (PCP) Forms HOME CARE DOCUMENTATION FORM, IMPORTANT VISIT INFORMATION Patient Instructions Constipation, [facility] Additional Instructions Diagnosis: Constipation Increase the fiber and water in your diet. MiraLAX 1 capful daily as needed for a bowel movement. Follow-up with your physician this week for reevaluation. Return to the ER for worsening of symptoms or any medical concerns.
[2017-11-26 00:34] LABS: BASO % 0.3 %; BASO ABS # 0.03 K/uL (0-0.2); EOS ABS # 0.11 K/uL (0-0.5); HEMATOCRIT 43.4 % (37-47); HEMOGLOBIN 14.9 g/dL (12.0-16.0); IG# 0.02 K/uL (0.00-0.02); LYMPH % 18.4 %; LYMPH ABS # 1.97 K/uL (1.2-3.4); MEAN CELL VOLUME 93.7 fL (80-100); MEAN CORPUSCULAR HEMOGLOBIN 32.2 pg (25-34); MEAN CORPUSCULAR HGB CONC 34.3 g/dl (32-36); MEAN PLATELET VOLUME 9.2 fL (7.4-10.4); MONO ABS # 0.86 K/uL (0.11-0.59); NEUT % 72.1 %; NEUT ABS # 7.74 K/uL (1.4-6.5); PLATELET COUNT 278 K/uL (130-400); RED CELL DISTRIBUTION WIDTH CV 12.8 % (11.5-14.5); RED CELL DISTRIBUTION WIDTH SD 43.6 fL (36.4-46.3); WHITE BLOOD COUNT 10.73 K/uL (4.8-10.8)
[2017-11-26] MEDS ORDERED: OPTIRAY 320 IV PRN (01:00)
[2017-11-26 01:03] LABS: ALBUMIN 3.9 gm/dl (3.4-5.0); ALKALINE PHOSPHATASE 87 U/L (45-117); ALT/SGPT 26 U/L (12-78); BLOOD UREA NITROGEN 16 mg/dl (7-18); CALCIUM 9.3 mg/dl (8.5-10.1); CARBON DIOXIDE 25 mmol/L (21-32); CREATININE 0.95 mg/dl (0.60-1.20); GLUCOSE 143 mg/dl (70-99); LIPASE 101 U/L (73-393); SODIUM 135 mmol/L (136-145); TOTAL PROTEIN 7.7 gm/dl (6.4-8.2)
[2017-11-26 01:50] LABS: POTASSIUM 3.5 mmol/L (3.5-5.1)
[2017-11-26] MEDS ORDERED: SOAP SUDS ENEMA PR STA (02:54)
[2017-11-26 05:32] VITALS: BP 142/90; PULSE 79; TEMP 36.8; O2SAT 97
--- NOTE | 2017-11-26 06:52 | DIAGNOSTIC IMAGING REPORT ---
ABDOMEN 2VIEW W/PA CHEST RTN CLINICAL HISTORY: constipation , lower abd pain COMPARISON STUDY: 02/11/2017 FINDINGS: The erect chest reveals no free intraperitoneal air. There is no focal pulmonary consolidation. There is a small linear area of scar/atelectasis at the left lung base. Advanced arthritic changes involve the left shoulder. Erect and supine views the abdomen reveal gas within large and small bowel loops. There are scattered air-fluid levels. There are no transition zones indicate bowel obstruction. IMPRESSION: Nonspecific bowel gas pattern with scattered air-fluid levels. No conventional radiographic evidence of bowel obstruction Electronically signed by: Wayne Stern M.D. 11/26/2017 6:51 AM Dictated Date/Time: 11/26/2017 6:50 AM
--- NOTE | 2017-11-26 07:43 | DIAGNOSTIC IMAGING REPORT ---
CT SCAN OF THE ABDOMEN AND PELVIS WITH IV CONTRAST CLINICAL HISTORY: Lower abdominal pain. Rectal pain. COMPARISON STUDY: Abdominal radiographs dated 11/26/2017. TECHNIQUE: Following the IV administration of 93 cc of Optiray 320, CT scan of the abdomen and pelvis is performed from the lung bases to the proximal femora. Images are reviewed in the axial, sagittal, and coronal planes. IV contrast was administered without complication. A dose lowering technique was utilized adhering to the principles of ALARA. CT DOSE: 476.07 mGy.cm FINDINGS: Lung bases: The heart is normal in size and without pericardial effusion. A fat-containing Bochdalek hernia is seen at the left lung base. Foci of linear atelectasis are present in the lower lobes. No airspace consolidation or pleural effusion is identified. There is a tiny hiatal hernia. Liver: The contrast-enhanced liver is normal in size, contour, and attenuation. There is no intrahepatic biliary ductal dilatation. The hepatic veins and portal veins are patent. Gallbladder: Unremarkable. Spleen: Normal in size and attenuation. Pancreas: Unremarkable. Adrenal glands: Unremarkable. Kidneys: The contrast enhanced kidneys demonstrate mild cortical atrophy and are without hydronephrosis. The kidneys enhance symmetrically. Scattered subcentimeter cortical hypodensities likely represent cysts but are too small for definitive characterization. Abdominal vasculature: The abdominal aorta is normal in course and caliber noting moderate atherosclerotic calcification. Bowel: There is rectosigmoid fecal impaction. There is mild rectal wall thickening and hyperemia. Perirectal inflammation is identified. Moderate fecal retention is seen throughout the remainder of the colon. No bowel obstruction is seen. The appendix is well-visualized and normal. Peritoneum: There is no intraperitoneal free air or abdominal ascites. Lymphadenopathy: None. Pelvic viscera: The bladder is normal as visualized. Uterine fibroids are suggested. No adnexal lesion is seen. Skeletal structures: The skeletal structures are osteopenic. Mild lumbosacral spondylosis is identified. There is a mild compression deformity of T8. No lytic or blastic lesions are seen. There are healed right-sided rib fractures. IMPRESSION: 1. There is rectosigmoid fecal impaction with evidence of proctitis. 2. Moderate constipation is seen throughout the remainder of the colon. No bowel obstruction is identified. 3. Suspect uterine fibroids. 4. Additional findings as above. Electronically signed by: Cj Hansen M.D. 11/26/2017 7:41 AM Dictated Date/Time: 11/26/2017 7:37 AM
== END 2017-11-26 05:33 | disposition home or self-care (01) ==
LOC: C.EDB 22:36
DX: K59.00 Constipation, unspecified (principal); F32.9 Major depressive disorder, single episode, unspecified; I25.2 Old myocardial infarction; Z87.01 Personal history of pneumonia (recurrent); Z87.891 Personal history of nicotine dependence; Z98.51 Tubal ligation status; Z90.89 Acquired absence of other organs; Z98.890 Other specified postprocedural states; Z80.3 Family history of malignant neoplasm of breast; Z80.8 Family history of malignant neoplasm of other organs or systems; Z83.3 Family history of diabetes mellitus; Z82.49 Family history of ischemic heart disease and other diseases of the circulatory system; Z79.82 Long term (current) use of aspirin; Z79.899 Other long term (current) drug therapy

== ENCOUNTER 2020-09-30 13:07 | Observation (INO) ==
[2020-09-30] MEDS ORDERED: fentaNYL citrate 100 MCG/2 ML VIAL IV STA (13:18)
--- NOTE | 2020-09-30 13:20 | Emergency Department Note ---
Impression & Plan Positive cardiac stress test, Chest pain ED Provider Note NAME: ROSALVA BLOOD AGE: 65 SEX: F : 1955 ARRIVES VIA: Ambulance INFORMANT: Patient, ED PROVIDER(S): Mango Loera MD Chief Complaint: Chest pain, positive stress test HPI: Patient was seen due to concerns for chest pain. The patient states chest pain began last evening with centralized nonradiating. The patient has had some diaphoresis and nausea without vomiting. Patient denies infectious symptoms. Patient was seen in the outpatient setting today where the patient did have a positive stress echo on the treadmill. The patient did receive a full dose aspirin and 3 total nitro with only mild improvement in her chest pain. The patient has had associated nausea and sweatiness but no vomiting. The patient did have a beer last night but denies any tobacco use. The patient is a prior history of 2 stents and does see Dr. Singh with cardiology on a regular basis. The patient does take a baby aspirin. Patient denies fevers, chills, shortness of breath or leg swelling. No prior history of DVT or PE. ROS: See HPI for pertinent positives and negatives. A total of 10 systems were reviewed and otherwise negative. Past medical history: See below Surgical history: See below Social history: See below Physical Exam: GENERAL: Wearing glasses and a mask. EYE EXAM: Normal conjunctiva. PERRL, no anisocoria and EOM's grossly intact w/o pain. NECK: Supple, no nuchal rigidity, no adenopathy, non-tender. No signs of meningismus. LUNGS: Clear to auscultation. Normal chest wall mechanics. HEART: NSR, no MRG. ABDOMEN: Abdomen soft, non-tender, normo-active bowel sounds, no masses, no rebound or guarding. BACK: No CVA TTP. SKIN: No rashes and no bruising. UPPER EXTREMITIES: Upper extremities are grossly normal. LOWER EXTREMITIES: Grossly normal, no edema. Negative Homans' sign bilaterally. NEURO EXAM: A&O x3, cranial nerves II-XII grossly intact, normal speech, moves all 4 extremities on command w/o issue. Differential diagnoses: Cardiac ischemia, aortic dissection, pulmonary embolism, pneumothorax, pneumonia, pericarditis, myocarditis, esophageal rupture, GERD, cholecystitis, pancreatitis, musculoskeletal, as well as other pathologies. Course: Patient was seen and evaluated the bedside. Full history physical exam was performed. EKG: Normal sinus rhythm, rate 86, normal intervals, normal axis, Q waves inferiorly, no obvious ST changes. Potentially very slight depression in the lateral leads. Imaging Studies: Radiology results as stated below per my review in the radiologist's interpretation: XR chest 1V portable CLINICAL HISTORY: Atypical chest pain COMPARISON STUDY: 06/24/2019 FINDINGS: The cardiac and mediastinal contours remain stable. There is no failure. There is no focal pulmonary consolidation. There are no pleural effusions. 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 There is a thoracolumbar scoliosis.[ IMPRESSION: No active disease in the chest. ACT 112: Negative or not required by law. Electronically signed by: Wayne Stern M.D. 09/30/2020 1:37 PM Dictated: 09/30/206 Transcribed: 09/30/201335 Cardiac monitoring: An order was placed for continuous cardiac monitoring. The monitor shows a rate of 87 with sinus rhythm. MDM: Patient does present with concern for recent positive stress echocardiogram was referred here for diagnostic heart cath. The patient still has some mild chest discomfort associated fentanyl and IV fluids. I did speak to on-call cardi ologist Dr. Hedrick who is aware the patient. I did also speak with Radha Wlof PA-C under Dr. Fry. The patient was to be admitted to [facility]. Chest x-ray unremarkable. EKG with no obvious ischemic change but does have some Q waves and may be very slight depressions in the lateral leads. And already did receive a full dose aspirin and 3 nitro in route. Patient has normal white count H&H and platelet count. Kidney function is unremarkable. The patient did have borderline elevated glucose troponin is not detectable. Covid negative. Past Med/Surg History Medical History CAD (coronary artery disease) PCI to prox LAD and LCx 2015 Depression Dyslipidemia NSTEMI (non-ST elevated myocardial infarction) Surgical History H/O breast surgery "1976- breast, Lactating Adenoma" H/O tubal ligation Hx of heart artery stent S/P tonsillectomy Family History Mother , 45 Breast cancer Social History Smoking Status: Former smoker packs per day: 2; Years Smoked: 15; Smoking End Date: 1978; Hx Alcohol Use: Yes Alcohol type: wine Hx Substance Use: No Preferred Language: Moroccan Communication Ability: Effective Beliefs That Will Affect Care: None marital status: Current Living Situation: Family Other Information That Helps Us Care for You: No Feels Safe at Home: Yes Safety Concerns: Feels Safe At This Time Assistive Devices: Glasses Allergies Allergies Allergy/AdvReac Type Severity Reaction Status Date / Time topiramate Allergy Unknown blepharosps Verified 11/25/17 23:47 ams prednisone AdvReac Unknown overly Verified 11/25/17 23:47 emotional reactions Home Meds Home Medications Medication Instructions Recorded Confirmed aspirin [Aspir-81] 81 mg PO DAILY 09/30/20 09/30/20 atorvastatin 80 mg PO HS 09/30/20 09/30/20 bupropion HCl 300 mg PO QAM 09/30/20 09/30/20 cholecalciferol (vitamin D3) 25 mcg PO DAILY 09/30/20 09/30/20 clonazepam 0.5 mg PO TID PRN 09/30/20 09/30/20 levothyroxine 25 mcg PO DAILY 09/30/20 09/30/20 losartan 12.5 mg PO DAILY 09/30/20 09/30/20 metformin 850 mg PO DAILY 09/30/20 09/30/20 metoprolol succinate 25 mg PO DAILY 09/30/20 09/30/20 spironolactone 100 mg PO DAILY 09/30/20 09/30/20 venlafaxine 75 mg PO DAILY 09/30/20 09/30/20 Results & Data (ED) Vital Signs Vital Signs - 24 hr 09/30/20 13:17 09/30/20 13:19 09/30/20 13:34 Temperature 36.9 C Temperature Source Oral Pulse Rate 87 84 84 Pulse Rate [Apical] Pulse Rate [Left Brachial] Pulse Rate from SpO2 Sensor 84 85 Respiratory Rate 16 12 14 Respiratory Effort / Characteristics Non-Labored Spontaneous Respiratory Depth Normal Respiratory Pattern Blood Pressure 126/87 126/87 Blood Pressure [Left Arm] Blood Pressure Mean 100 95 Blood Pressure Mean [Left Arm] Blood Pressure Position Lying Pulse Oximetry 97 97 94 Oxygen Delivery Method Room Air Sepsis Recent Fever Within 48 Hours No Sepsis New/Unexplained Change in Mental Status No Sepsis Action Taken by Nursing No Action Required 09/30/20 13:40 09/30/20 13:47 09/30/20 13:48 Temperature Temperature Source Pulse Rate 91 H 86 89 Pulse Rate [Apical] Pulse Rate [Left Brachial] Pulse Rate from SpO2 Sensor 90 85 88 Respiratory Rate 17 18 18 Respiratory Effort / Characteristics Respiratory Depth Respiratory Pattern Blood Pressure 110/81 Blood Pressure [Left Arm] Blood Pressure Mean 88 Blood Pressure Mean [Left Arm] Blood Pressure Position Pulse Oximetry 98 96 98 Oxygen Delivery Method Sepsis Recent Fever Within 48 Hours Sepsis New/Unexplained Change in Mental Status Sepsis Action Taken by Nursing 09/30/20 13:50 09/30/20 13:51 09/30/20 14:00 Temperature Temperature Source Pulse Rate 89 82 81 Pulse Rate [Apical] Pulse Rate [Left Brachial] Pulse Rate from SpO2 Sensor 89 84 82 Respiratory Rate 18 19 19 Respiratory Effort / Characteristics Respiratory Depth Respiratory Pattern Blood Pressure 119/78 108/76 Blood Pressure [Left Arm] Blood Pressure Mean 96 98 Blood Pressure Mean [Left Arm] Blood Pressure Position Pulse Oximetry 96 95 95 Oxygen Delivery Method Sepsis Recent Fever Within 48 Hours Sepsis New/Unexplained Change in Mental Status Sepsis Action Taken by Nursing 09/30/20 14:01 09/30/20 14:10 09/30/20 14:11 Temperature Temperature Source Pulse Rate 82 79 81 Pulse Rate [Apical] Pulse Rate [Left Brachial] Pulse Rate from SpO2 Sensor 82 79 81 Respiratory Rate 19 15 26 H Respiratory Effort / Characteristics Respiratory Depth Respiratory Pattern Blood Pressure 123/87 Blood Pressure [Left Arm] Blood Pressure Mean 96 Blood Pressure Mean [Left Arm] Blood Pressure Position Pulse Oximetry 95 97 97 Oxygen Delivery Method Sepsis Recent Fever Within 48 Hours Sepsis New/Unexplained Change in Mental Status Sepsis Action Taken by Nursing 09/30/20 14:20 09/30/20 14:21 09/30/20 14:30 Temperature Temperature Source Pulse Rate 75 74 74 Pulse Rate [Apical] Pulse Rate [Left Brachial] Pulse Rate from SpO2 Sensor 73 74 72 Respiratory Rate 12 12 12 Respiratory Effort / Characteristics Respiratory Depth Respiratory Pattern Blood Pressure 127/77 117/79 Blood Pressure [Left Arm] Blood Pressure Mean 83 90 Blood Pressure Mean [Left Arm] Blood Pressure Position Pulse Oximetry 93 94 94 Oxygen Delivery Method Sepsis Recent Fever Within 48 Hours Sepsis New/Unexplained Change in Mental Status Sepsis Action Taken by Nursing 09/30/20 14:31 09/30/20 14:40 09/30/20 14:41 Temperature Temperature Source Pulse Rate 71 72 71 Pulse Rate [Apical] Pulse Rate [Left Brachial] Pulse Rate from SpO2 Sensor 71 72 70 Respiratory Rate 14 14 14 Respiratory Effort / Characteristics Respiratory Depth Respiratory Pattern Blood Pressure 117/74 Blood Pressure [Left Arm] Blood Pressure Mean 84 Blood Pressure Mean [Left Arm] Blood Pressure Position Pulse Oximetry 95 95 93 Oxygen Delivery Method Sepsis Recent Fever Within 48 Hours Sepsis New/Unexplained Change in Mental Status Sepsis Action Taken by Nursing 09/30/20 14:52 09/30/20 15:35 09/30/20 15:50 Temperature Temperature Source Pulse Rate 69 Pulse Rate [Apical] 78 78 Pulse Rate [Left Brachial] Pulse Rate from SpO2 Sensor Respiratory Rate 14 16 16 Respiratory Effort / Characteristics Non-Labored Non-Labored Respiratory Depth Normal Normal Respiratory Pattern Regular Regular Blood Pressure 117/74 Blood Pressure [Left Arm] 116/72 114/83 Blood Pressure Mean Blood Pressure Mean [Left Arm] 86 93 Blood Pressure Position Pulse Oximetry 94 93 95 Oxygen Delivery Method Room Air Room Air Room Air Sepsis Recent Fever Within 48 Hours Sepsis New/Unexplained Change in Mental Status Sepsis Action Taken by Nursing 09/30/20 16:05 09/30/20 16:18 Temperature 36.5 C Temperature Source Oral Pulse Rate Pulse Rate [Apical] 77 Pulse Rate [Left Brachial] 80 Pulse Rate from SpO2 Sensor Respiratory Rate 16 18 Respiratory Effort / Characteristics Non-Labored Respiratory Depth Normal Respiratory Pattern Regular Blood Pressure Blood Pressure [Left Arm] 132/80 105/61 Blood Pressure Mean Blood Pressure Mean [Left Arm] 97 75 Blood Pressure Position Pulse Oximetry 95 98 Oxygen Delivery Method Room Air Room Air Sepsis Recent Fever Within 48 Hours Sepsis New/Unexplained Change in Mental Status Sepsis Action Taken by [facility] Medications Current Medication List: was personally reviewed by me Laboratory Data Attestation: I reviewed the patient's lab results. Result diagrams: 09/30/20 13:45 09/30/20 13:45 Lab Results 09/30/20 09/30/20 09/30/20 Range/Units 13:45 13:45 13:45 WBC 7.65 (4.8-10.8) K/uL RBC 4.37 (4.2-5.4) M/uL Hgb 14.1 (12.0-16.0) g/dL Hct 41.1 (37-47) % MCV 94.1 (80-100) fL MCH 32.3 (25-34) pg MCHC 34.3 (32-36) g/dL RDW Std Deviation 43.8 (36.4-46.3) fL RDW Coeff of Feliciano 12.8 (11.5-14.5) % Plt Count 285 (130-400) K/uL MPV 8.9 (7.4-10.4) fL Immature Gran % (Auto) 0.3 % Neut % (Auto) 69.0 % Lymph % (Auto) 20.5 % Lawrence % (Auto) 8.2 % Eos % (Auto) 1.7 % Baso % (Auto) 0.3 % Neut # (Auto) 5.28 (1.4-6.5) K/uL Lymph # (Auto) 1.57 (1.2-3.4) K/uL Lawrence # (Auto) 0.63 H (0.11-0.59) K/uL Eos # (Auto) 0.13 (0-0.5) K/uL Baso # (Auto) 0.02 (0-0.2) K/uL Immature Gran # (Auto) 0.02 (0.00-0.02) K/uL PT 11.3 (9.0-12.0) Seconds INR 1.1 (0.9-1.1) APTT 26.2 (21.0-31.0) Seconds PTT Ratio 0.9 Sodium 136 (136-145) mmol/L Potassium 4.2 (3.5-5.1) mmol/L Chloride 103 (98-107) mmol/L Carbon Dioxide 25 (21-32) mmol/L Anion Gap 8.0 (3-11) BUN 22 H (7-18) mg/dl Creatinine 0.97 (0.6-1.2) mg/dl Est Cr Clr Drug Dosing 48.7 ml/min Est GFR ( Amer) 70.0 Est GFR (Non-Af Amer) 60.4 BUN/Creatinine Ratio 22.6 H (10-20) Glucose 144 H (70-99) mg/dl POC Glucose (70-99) mg/dl Calcium 9.4 (8.5-10.1) mg/dl Phosphorus 2.8 (2.5-4.9) mg/dl Magnesium 1.8 (1.8-2.4) mg/dl Total Bilirubin 1.2 H (0.2-1) mg/dl AST 18 (15-37) U/L ALT 34 (12-78) U/L Alkaline Phosphatase 64 (45-117) U/L Troponin I < 0.015 (0-0.045) ng/ml Total Protein 7.5 (6.4-8.2) gm/dl Albumin 3.9 (3.4-5.0) gm/dl Globulin 3.6 (2.5-4.0) gm/dl Albumin/Globulin Ratio 1.1 (0.9-2) Lipase 102 (73-393) U/L COVID-19 Eval Order SARS-CoV-2, RNA, NAAT (NEGATIVE) 09/30/20 09/30/20 09/30/20 Range/Units 14:05 14:05 14:05 WBC (4.8-10.8) K/uL RBC (4.2-5.4) M/uL Hgb (12.0-16.0) g/dL Hct (37-47) % MCV (80-100) fL MCH (25-34) pg MCHC (32-36) g/dL RDW Std Deviation (36.4-46.3) fL RDW Coeff of Feliciano (11.5-14.5) % Plt Count (130-400) K/uL MPV (7.4-10.4) fL Immature Gran % (Auto) % Neut % (Auto) % Lymph % (Auto) % Lawrence % (Auto) % Eos % (Auto) % Baso % (Auto) % Neut # (Auto) (1.4-6.5) K/uL Lymph # (Auto) (1.2-3.4) K/uL Lawrence # (Auto) (0.11-0.59) K/uL Eos # (Auto) (0-0.5) K/uL Baso # (Auto) (0-0.2) K/uL Immature Gran # (Auto) (0.00-0.02) K/uL PT (9.0-12.0) Seconds INR (0.9-1.1) APTT (21.0-31.0) Seconds PTT Ratio Sodium (136-145) mmol/L Potassium (3.5-5.1) mmol/L Chloride (98-107) mmol/L Carbon Dioxide (21-32) mmol/L Anion Gap (3-11) BUN (7-18) mg/dl Creatinine (0.6-1.2) mg/dl Est Cr Clr Drug Dosing ml/min Est GFR ( Amer) Est GFR (Non-Af Amer) BUN/Creatinine Ratio (10-20) Glucose (70-99) mg/dl POC Glucose (70-99) mg/dl Calcium (8.5-10.1) mg/dl Phosphorus (2.5-4.9) mg/dl Magnesium (1.8-2.4) mg/dl Total Bilirubin (0.2-1) mg/dl AST (15-37) U/L ALT (12-78) U/L Alkaline Phosphatase (45-117) U/L Troponin I (0-0.045) ng/ml Total Protein (6.4-8.2) gm/dl Albumin (3.4-5.0) gm/dl Globulin (2.5-4.0) gm/dl Albumin/Globulin Ratio (0.9-2) Lipase (73-393) U/L COVID-19 Eval Order Covid19 [facility] SARS-CoV-2, RNA, NAAT NEGATIVE NEGATIVE (NEGATIVE) 09/30/20 Range/Units 16:24 WBC (4.8-10.8) K/uL RBC (4.2-5.4) M/uL Hgb (12.0-16.0) g/dL Hct (37-47) % MCV (80-100) fL MCH (25-34) pg MCHC (32-36) g/dL RDW Std Deviation (36.4-46.3) fL RDW Coeff of Feliciano (11.5-14.5) % Plt Count (130-400) K/uL MPV (7.4-10.4) fL Immature Gran % (Auto) % Neut % (Auto) % Lymph % (Auto) % Lawrence % (Auto) % Eos % (Auto) % Baso % (Auto) % Neut # (Auto) (1.4-6.5) K/uL Lymph # (Auto) (1.2-3.4) K/uL Lawrence # (Auto) (0.11-0.59) K/uL Eos # (Auto) (0-0.5) K/uL Baso # (Auto) (0-0.2) K/uL Immature Gran # (Auto) (0.00-0.02) K/uL PT (9.0-12.0) Seconds INR (0.9-1.1) APTT (21.0-31.0) Seconds PTT Ratio Sodium (136-145) mmol/L Potassium (3.5-5.1) mmol/L Chloride (98-107) mmol/L Carbon Dioxide (21-32) mmol/L Anion Gap (3-11) BUN (7-18) mg/dl Creatinine (0.6-1.2) mg/dl Est Cr Clr Drug Dosing ml/min Est GFR ( Amer) Est GFR (Non-Af Amer) BUN/Creatinine Ratio (10-20) Glucose (70-99) mg/dl POC Glucose 103 H (70-99) mg/dl Calcium (8.5-10.1) mg/dl Phosphorus (2.5-4.9) mg/dl Magnesium (1.8-2.4) mg/dl Total Bilirubin (0.2-1) mg/dl AST (15-37) U/L ALT (12-78) U/L Alkaline Phosphatase (45-117) U/L Troponin I (0-0.045) ng/ml Total Protein (6.4-8.2) gm/dl Albumin (3.4-5.0) gm/dl Globulin (2.5-4.0) gm/dl Albumin/Globulin Ratio (0.9-2) Lipase (73-393) U/L COVID-19 Eval Order SARS-CoV-2, RNA, NAAT (NEGATIVE) Administered Medications Insulin Aspart (Insulin Aspart 100 Units/Ml 3 Ml Pen) 0 units SC ACHS [facility] Stop: 10/30/20 16:29 Last Admin: 09/30/20 17:33 Dose: 1 units Documented by: [id number] Cosigned by: [id number] Levothyroxine Sodium (Levothyroxine Sodium 25 Mcg Tablet) 25 mcg PO DAILYBB [facility] Stop: 10/30/20 16:59 Last Admin: 09/30/20 17:31 Dose: Not Given Documented by: [id number] Metoprolol Succinate (Metoprolol Succ 25mg Ext Rel Tab) 25 mg PO DAILY [facility] Stop: 10/30/20 16:59 Last Admin: 09/30/20 17:32 Dose: 25 mg Documented by: [id number] Pantoprazole Sodium (Pantoprazole 40 Mg Tab) 40 mg PO QAM [facility] Stop: 10/30/20 16:59 Last Admin: 09/30/20 17:32 Dose: 40 mg Documented by: [id number] Spironolactone (Spironolactone 100 Mg Tab) 100 mg PO DAILY [facility] Stop: 10/30/20 16:59 Last Admin: 09/30/20 17:32 Dose: 100 mg Documented by: [id number] Venlafaxine HCl (Venlafaxine Hcl Xr 75 Mg Capxr) 75 mg PO DAILY [facility] Stop: 10/30/20 16:59 Last Admin: 09/30/20 17:32 Dose: 75 mg Documented by: [id number] Discontinued Medications Fentanyl Citrate (Fentanyl Citrate 100 Mcg/2 Ml Vial) 25 mcg IV NOW [facility] Stop: 09/30/20 13:19 Last Admin: 09/30/20 13:44 Dose: 25 mcg Documented by: [id number] Fentanyl Citrate (Fentanyl Citrate 100 Mcg/2 Ml Vial) Confirm Administered Dose 100 mcg .ROUTE .STK-MED ONE Stop: 09/30/20 15:03 Last Admin: 09/30/20 16:54 Dose: Not Given Documented by: [id number] Heparin Sodium (Porcine) (Heparin (Porcine) 1000 Unit/Ml 10 Ml (Legal Transcriber Use Only)) Confirm Administered Dose 10,000 units .ROUTE .STK-MED ONE Stop: 09/30/20 15:03 Last Admin: 09/30/20 16:54 Dose: Not Given Documented by: [id number] Heparin Sodium/Sodium Chloride (Heparin In Nss Infusion 1000 Unit/500 Ml (2 U/Ml) Bag) Confirm Administered Dose 3,000 units IV .STK-MED ONE Stop: 09/30/20 15:04 Last Admin: 09/30/20 16:54 Dose: Not Given Documented by: [id number] Sodium Chloride (Nss) 500 mls @ 250 mls/hr IV .Q2H [facility] Stop: 10/30/20 13:29 Last Admin: 09/30/20 16:55 Dose: Not Given Documented by: [id number] Infusion: 09/30/20 16:55 Dose: 0 mls/hr Documented by: [id number] Admin: 09/30/20 13:44 Dose: 250 mls/hr Documented by: [id number] Midazolam HCl (Midazolam Hcl 1 Mg/Ml 2ml Vial) Confirm Administered Dose 2 mg .ROUTE .STK-MED ONE Stop: 09/30/20 15:04 Last Admin: 09/30/20 16:55 Dose: Not Given Documented by: [id number] Nicardipine HCl (Nicardipine Hcl Inj 2.5 Mg/Ml 10 Ml Amp) Confirm Administered Dose 25 mg .ROUTE .STK-MED ONE Stop: 09/30/20 15:03 Last Admin: 09/30/20 16:54 Dose: Not Given Documented by: [id number] Nitroglycerin/Dextrose (Nitroglycerin/D5w 100mcg/Ml 20ml Syr) Confirm Administered Dose 2,000 mcg .ROUTE .STK-MED ONE Stop: 09/30/20 15:04 Last Admin: 09/30/20 16:54 Dose: Not Given Documented by: [id number] Discharge Plan Visit Data Chief Complaint: Cardiac Assessment ED Provider: Mango Loera Discharge Problem: Positive cardiac stress test, Chest pain Patient Disposition: Admitted As Inpatient Discharge Instructions Interventions: ED Discharge Assessment Last Done: 09/30/20 14:52
--- NOTE | 2020-09-30 13:36 | Cardiology Consultation ---
Date of Consultation September 30, 2020 Assessment & Plan (1) Unstable angina: (2) CAD (coronary artery disease): (3) Abnormal stress test: (4) Type 2 diabetes mellitus: (5) PTSD (post-traumatic stress disorder): Patient with continued waxing and waning chest discomfort at rest. Some relief with sublingual nitroglycerin. Currently relatively hypotensive and to be given IV fluids. Rapid Covid test and routine blood work sent. We will plan on proceeding to cardiac catheterization pending laboratory studies. Patient is in agreement with plan. History of Present Illness Reason for Consultation: unstable angina/abnormal stress test Requesting Physician: Dr. Fry Attending Physician: Dr. Fry History of Present Illness Mrs. Zuleta is a very pleasant 65-year-old woman who routinely follows with Dr. Castillo of our cardiology practice. She presented to our office today with complaints of substernal chest discomfort and dysphagia. She states that she feels like there is a pork chop stuck in her throat with exertion. She underwent stress testing which was suggestive of ischemia in the circumflex territory and she was transferred to [facility] emergency department. She was having some chest discomfort prior to the test which she ranked as 4 out of 10. At peak heart rate she ran chest pain is 8 out of 10 and received nitroglycerin in our office. EMS was summoned and upon arrival to the emergency department she still rated her discomfort as a 6 out of 10. She was given sublingual nitroglycerin which caused some transient hypotension which improved with IV fluids. She is to be given fentanyl at this time for further pain control. Allergies Allergy/AdvReac Type Severity Reaction Status Date / Time topiramate Allergy Unknown blepharosps Verified 11/25/17 23:47 ams prednisone AdvReac Unknown overly Verified 11/25/17 23:47 emotional reactions Home Medications Medication Instructions Recorded Confirmed Type aspirin [Aspir-81] 81 mg PO DAILY 09/30/20 09/30/20 History atorvastatin 80 mg PO HS 09/30/20 09/30/20 History bupropion HCl 300 mg PO QAM 09/30/20 09/30/20 History cholecalciferol (vitamin D3) 25 mcg PO DAILY 09/30/20 09/30/20 History clonazepam 0.5 mg PO TID PRN 09/30/20 09/30/20 History levothyroxine 25 mcg PO DAILY 09/30/20 09/30/20 History losartan 12.5 mg PO DAILY 09/30/20 09/30/20 History metformin 850 mg PO DAILY 09/30/20 09/30/20 History metoprolol succinate 25 mg PO DAILY 09/30/20 09/30/20 History spironolactone 100 mg PO DAILY 09/30/20 09/30/20 History venlafaxine 75 mg PO DAILY 09/30/20 09/30/20 History Patient History Medical History CAD (coronary artery disease) PCI to prox LAD and LCx 2015 Depression Dyslipidemia NSTEMI (non-ST elevated myocardial infarction) Surgical History H/O breast surgery "1976- breast, Lactating Adenoma" H/O tubal ligation Hx of heart artery stent S/P tonsillectomy Social History Smoking Status: Former smoker packs per day: 2; Years Smoked: 15; Smoking End Date: 1978; Preferred Language: Macanese marital status: Current Living Situation: Family Feels Safe at Home: Yes Review of Systems Review of Systems: All systems reviewed & are unremarkable except as noted in HPI & below Physical Exam Physical Exam: General: Awake, alert and oriented x 3. Mildly anxious and rather pale in appearance HEENT: Normocephalic, atraumatic. Pupils equal, round and reactive to light and accommodation. Extraocular muscles are intact. Anicteric sclera. Moist mucous membranes. Neck: No JVD. No bruit. Cardiovascular: Regular. Positive S-4. Normal S-1 and S-2. No S-3. No murmurs or rubs. Pulmonary: Clear to auscultation B/L. No rales, rhonchi or wheezing Abdomen: Bowel sounds x 4, soft. No rebound, guarding or tenderness. No organomegaly. Extremities: No clubbing, cyanosis or edema. +2 pedal pulses bilaterally. Skin: Warm and dry. Results & Data ([facility]) Laboratory Results Laboratory Results - last 24 hr 09/30/20 09/30/20 09/30/20 13:45 13:45 13:45 WBC 7.65 RBC 4.37 Hgb 14.1 Hct 41.1 MCV 94.1 MCH 32.3 MCHC 34.3 RDW Std Deviation 43.8 RDW Coeff of Feliciano 12.8 Plt Count 285 MPV 8.9 Immature Gran % (Auto) 0.3 Neut % (Auto) 69.0 Lymph % (Auto) 20.5 Walton % (Auto) 8.2 Eos % (Auto) 1.7 Baso % (Auto) 0.3 Neut # (Auto) 5.28 Lymph # (Auto) 1.57 Walton # (Auto) 0.63 H Eos # (Auto) 0.13 Baso # (Auto) 0.02 Immature Gran # (Auto) 0.02 PT 11.3 INR 1.1 APTT 26.2 PTT Ratio 0.9 Sodium 136 Potassium 4.2 Chloride 103 Carbon Dioxide 25 Anion Gap 8.0 BUN 22 H Creatinine 0.97 Est Cr Clr Drug Dosing 48.7 Est GFR ( Amer) 70.0 Est GFR (Non-Af Amer) 60.4 BUN/Creatinine Ratio 22.6 H Glucose 144 H Calcium 9.4 Phosphorus 2.8 Magnesium 1.8 Total Bilirubin 1.2 H AST 18 ALT 34 Alkaline Phosphatase 64 Troponin I < 0.015 Total Protein 7.5 Albumin 3.9 Globulin 3.6 Albumin/Globulin Ratio 1.1 Lipase 102 COVID-19 Eval Order SARS-CoV-2, RNA, NAAT 09/30/20 09/30/20 09/30/20 14:05 14:05 14:05 WBC RBC Hgb Hct MCV MCH MCHC RDW Std Deviation RDW Coeff of Feliciano Plt Count MPV Immature Gran % (Auto) Neut % (Auto) Lymph % (Auto) Walton % (Auto) Eos % (Auto) Baso % (Auto) Neut # (Auto) Lymph # (Auto) Walton # (Auto) Eos # (Auto) Baso # (Auto) Immature Gran # (Auto) PT INR APTT PTT Ratio Sodium Potassium Chloride Carbon Dioxide Anion Gap BUN Creatinine Est Cr Clr Drug Dosing Est GFR ( Amer) Est GFR (Non-Af Amer) BUN/Creatinine Ratio Glucose Calcium Phosphorus Magnesium Total Bilirubin AST ALT Alkaline Phosphatase Troponin I Total Protein Albumin Globulin Albumin/Globulin Ratio Lipase COVID-19 Eval [facility] SARS-CoV-2, RNA, NAAT NEGATIVE NEGATIVE
--- NOTE | 2020-09-30 13:38 | XRay Report ---
XR chest 1V portable CLINICAL HISTORY: Atypical chest pain COMPARISON STUDY: 06/24/2019 FINDINGS: The cardiac and mediastinal contours remain stable. There is no failure. There is no focal pulmonary consolidation. There are no pleural effusions. 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 There is a tho racolumbar scoliosis.[ IMPRESSION: No active disease in the chest. ACT 112: Negative or not required by law. Electronically signed by: Wayne Stern M.D. 09/30/2020 1:37 PM
[2020-09-30] MEDS: SODIUM CHLORIDE 0.9% 500 ML IV SCH ×2 (13:44→16:55)
[2020-09-30 13:57] LABS: Basophils # (auto) 0.02 K/uL (0-0.2); Basophils % (auto) 0.3 %; Eosinophils # (auto) 0.13 K/uL (0-0.5); Eosinophils % (auto) 1.7 %; Hematocrit (blood only) 41.1 % (37-47); Hemoglobin 14.1 g/dL (12.0-16.0); Immature Granulocytes # (auto) 0.02 K/uL (0.00-0.02); Immature Granulocytes % (auto) 0.3 %; Lymphocytes # (auto) 1.57 K/uL (1.2-3.4); Lymphocytes % (auto) 20.5 %; Mean Corpuscular Hemoglobin 32.3 pg (25-34); Mean Corpuscular Hgb Conc 34.3 g/dL (32-36); Mean Corpuscular Volume 94.1 fL (80-100); Mean Platelet Volume 8.9 fL (7.4-10.4); Monocytes # (auto) 0.63 K/uL (0.11-0.59); Monocytes % (auto) 8.2 %; Neutrophils # (auto) 5.28 K/uL (1.4-6.5); Platelet Count 285 K/uL (130-400); RDW Coefficient of Variation 12.8 % (11.5-14.5); RDW Standard Deviation 43.8 fL (36.4-46.3); Red Blood Count 4.37 M/uL (4.2-5.4); White Blood Count 7.65 K/uL (4.8-10.8)
[2020-09-30] MEDS ORDERED: GLUCOSE 40% GEL 15 GM TUBE PO PRN (13:58)
[2020-09-30] MEDS ORDERED: DEXTROSE 50% 50 ML SYRINGE IV PRN (13:58)
[2020-09-30] MEDS ORDERED: GLUCOSE 10 TABS/TUBE PO PRN (13:58)
[2020-09-30] MEDS ORDERED: GLUCAGON FOR INJ 1 MG VIAL SQ PRN (13:58)
[2020-09-30 14:15] LABS: Albumin Level 3.9 gm/dl (3.4-5.0); BUN Creatinine Ratio 22.6 (10-20); Blood Urea Nitrogen 22 mg/dl (7-18); Calcium 9.4 mg/dl (8.5-10.1); Carbon Dioxide 25 mmol/L (21-32); Chloride 103 mmol/L (98-107); Creatinine Clr Calc Pharmacy 48.7 ml/min; Est GFR (Non-African American) 60.4; Glucose 144 mg/dl (70-99); INR 1.1 (0.9-1.1); Lipase 102 U/L (73-393); Magnesium 1.8 mg/dl (1.8-2.4); Partial Thromboplastin Ratio 0.9; Partial Thromboplastin Time 26.2 Seconds (21.0-31.0); Potassium 4.2 mmol/L (3.5-5.1); Prothrombin Time 11.3 Seconds (9.0-12.0); Sodium 136 mmol/L (136-145)
[2020-09-30] MEDS ORDERED: NITROGLYCERIN 2% OINTMENT 30GM TUBE EXT PRN (14:15)
[2020-09-30 14:21] LABS: Alanine Aminotransferase 34 U/L (12-78); Albumin Globulin Ratio 1.1 (0.9-2); Alkaline Phosphatase 64 U/L (45-117); Aspartate Aminotransferase 18 U/L (15-37); Bilirubin,Total 1.2 mg/dl (0.2-1); Globulin 3.6 gm/dl (2.5-4.0); Phosphorus 2.8 mg/dl (2.5-4.9); Total Protein 7.5 gm/dl (6.4-8.2); Troponin I < 0.015 ng/ml (0-0.045)
--- NOTE | 2020-09-30 14:30 | History & Physical Report ---
Date of Service September 30, 2020 Assessment & Plan (1) Unstable angina: (2) CAD (coronary artery disease): (3) Abnormal stress test: This is a 65-year-old female who has significant past medical history of CAD with history of NSTEMI 04/2016 with PCI and LIZZETH to circumflex and LAD, HTN, HLD, postsurgical hypothyroidism, hyperparathyroidism, T2DM, osteoporosis, depression and PTSD who presents to ED at the referral of cardiology due to unstable angina. Pt seen and evaluated by cardiology clinic today. Chest pain, substernal, radiation to neck/throat, dysphagia. S/P stress echo concerning for ischemia in area of L circumflex territory. Send to ED via EMS. Received ASA and nitro en route. Still 04/03 chest pain. Seen and evaluated by cardiology to undergo urgent cardiac cath. Admit to PCU to undergo cardiac cath prior to admission to floor will await results of cardiac cath cycle troponin obtain a1c, lipid panel in a.m. (4) Type 2 diabetes mellitus: last a1c 7.6 07/2020 hold metformin lantus/novolog per protocol a1c in a.m. (5) Dyslipidemia: continue statin fasting lipid panel in a.m. (6) Depression: PTSD, Depression, Anxiety continue wellbutrin, effexor (7) DVT prophylaxis: SCD/TEDS, to be determined post cath Disposition: to be admitted to PCU post cath Follow up: PCP Dr. Singh upon discharge Pt was seen and examined in collaboration with Dr. Fry, please see addendum History of Present Illness Chief Complaint: Referred by cardiology due to unstable angina. Primary Care Provider: Pushpa Singh DO This is a 65-year-old female who has significant past medical history of CAD with history of NSTEMI 04/2016 with PCI and LIZZETH to circumflex and LAD, HTN, HLD, postsurgical hypothyroidism, hyperparathyroidism, T2DM, osteoporosis, depression and PTSD who presents to ED at the referral of cardiology due to unstable angina. She was seen and evaluated in cardiology clinic today secondary to substernal chest discomfort that radiates to neck and throat. Symptoms started last evening at rest. She thought symptoms were related to GERD and was started on Protonix, but did not start this yet. Now she recalls these were similar symptoms to her prior NC presentation. She also has associated clamminess and nausea. Was unable to tolerate any oral medications today due to nausea. She did not try sublingual nitro with symptoms. She denies any unusual shortness of breath, ACOSTA, orthopnea, PND, edema or chest pain with exertion. Currently pain is 6/10. She had EKG in clinic today which show mild T wave abnormality in inferior leads. According to ER provider she did undergo stress echocardiogram which resulted in worsened chest discomfort. She was therefore referred to ED for further evaluation and cardiac catheterization. There are no stress echo results to review yet. Currently continues to have 6 out of 10 chest pressure. She overall feels anxious prior to planned cardiac catheterization. She denies any recent illness, fever, chills, sweats, lightheadedness, dizziness, syncope, cough, hemoptysis, emesis, abdominal pain, dysuria, increased urgency or frequency with urination, change in bowel or urinary habits. She has been compliant with her medications, except for this morning. He does have history of T2DM in which she recalls her last A1c over 7. Per ED provider patient received 3 sublingual nitroglycerin which did result in some mild hypotension. This was improved with IV fluid. She also received IV fentanyl for pain relief. In route she received 4 ASA. Allergies Allergy/AdvReac Type Severity Reaction Status Date / Time topiramate Allergy Unknown blepharosps Verified 11/25/17 23:47 ams prednisone AdvReac Unknown overly Verified 11/25/17 23:47 emotional reactions Home Medications Medication Instructions Recorded Confirmed Type aspirin [Aspir-81] 81 mg PO DAILY 09/30/20 09/30/20 History atorvastatin 80 mg PO HS 09/30/20 09/30/20 History bupropion HCl 300 mg PO QAM 09/30/20 09/30/20 History cholecalciferol (vitamin D3) 25 mcg PO DAILY 09/30/20 09/30/20 History clonazepam 0.5 mg PO TID PRN 09/30/20 09/30/20 History levothyroxine 25 mcg PO DAILY 09/30/20 09/30/20 History losartan 12.5 mg PO DAILY 09/30/20 09/30/20 History metformin 850 mg PO DAILY 09/30/20 09/30/20 History metoprolol succinate 25 mg PO DAILY 09/30/20 09/30/20 History spironolactone 100 mg PO DAILY 09/30/20 09/30/20 History venlafaxine 75 mg PO DAILY 09/30/20 09/30/20 History Past Med/Surg History Medical History CAD (coronary artery disease) PCI to prox LAD and LCx 2015 Depression Dyslipidemia NSTEMI (non-ST elevated myocardial infarction) Surgical History H/O breast surgery "1976- breast, Lactating Adenoma" H/O tubal ligation Hx of heart artery stent S/P tonsillectomy Family History (Updated 09/30/20 @ 14:57 by Radha Urias PA-C) Mother , 45 Breast cancer Social History Smoking Status: Former smoker packs per day: 2; Years Smoked: 15; Smoking End Date: 1978; Hx Substance Use: No Preferred Language: [place] marital status: Current Living Situation: Family Feels Safe at Home: Yes Review of Systems Review of Systems: All systems reviewed & are unremarkable except as noted in HPI & below Physical Exam Physical Exam: Constitutional: WD/WN, vitals as above, NAD, sitting up in bed, pleasant, conversing easily Head: Normocephalic, Atraumatic Eyes: PERRL, conjunctivae normal, anicteric sclerae ENMT: external ear and nose normal, oropharynx normal Neck: trachea midline, no thyromegaly normal visual inspection Respiratory: normal respiratory effort, lungs clear to auscultation, no wheeze, rales, rhonchi. Normal insp/exp effort, no accessory muscle use Cardiovascular: RRR, no murmur, no edema Vessels: no JVD or carotid bruit Chest: normal inspection of chest Abdomen: normal bowel sounds, soft, nontender, no hepatosplenomegaly Musculoskeletal: no cyanosis or clubbing, extremities motor strength 5/5 Skin: no rashes, warm and dry normal turgor Neurologic: PERRL, EOMI, accommodation nl, no face palsy, no dysarthria CN's II-XI intact bilaterally and moves all extremities Psychiatric: A+Ox3, euthymic affect Lymphatic: no cervical or axillary lymphadenopathy : deferred Results & Data Results & Data ([facility]) Vital Signs (Past 12 Hours) Vital Signs Temp Pulse Resp BP Pulse Ox 09/30/20 13:47 86 18 110/81 96 09/30/20 13:40 91 H 17 98 09/30/20 13:34 84 14 94 09/30/20 13:19 84 12 126/87 97 09/30/20 13:17 36.9 C 87 16 126/87 97 Laboratory Results Short CBC 09/30/20 Range/Units 13:45 WBC 7.65 (4.8-10.8) K/uL Hgb 14.1 (12.0-16.0) g/dL Hct 41.1 (37-47) % Plt Count 285 (130-400) K/uL BMP 09/30/20 13:45 Sodium 136 Potassium 4.2 Chloride 103 Carbon Dioxide 25 BUN 22 H Creatinine 0.97 Glucose 144 H Calcium 9.4 Cardiac Enzymes 09/30/20 Range/Units 13:45 Troponin I < 0.015 (0-0.045) ng/ml Liver Function 09/30/20 Range/Units 13:45 Total Bilirubin 1.2 H (0.2-1) mg/dl AST 18 (15-37) U/L ALT 34 (12-78) U/L Alkaline Phosphatase 64 (45-117) U/L Albumin 3.9 (3.4-5.0) gm/dl Diagnostic Findings CXR: IMPRESSION: No active disease in the chest. Medications Administered Sodium Chloride (Nss) 500 mls @ 250 mls/hr IV .Q2H FAITH Stop: 10/30/20 13:29 Last Admin: 09/30/20 13:44 Dose: 250 mls/hr Documented by: [id number] Discontinued Medications Fentanyl Citrate (Fentanyl Citrate 100 Mcg/2 Ml Vial) 25 mcg IV NOW STA Stop: 09/30/20 13:19 Last Admin: 09/30/20 13:44 Dose: 25 mcg Documented by: [id number] ECG Rate (beats per minute): 76 Rhythm: normal sinus Findings: + nonspecific-ST abn (inferior ) Code Status & VTE Plan Code Status Full Code VTE Prophylaxis Plan VTE Prophylaxis will be ordered: Yes Supervising Physician Co-Signing Physician Notes Pt seen and examined by me, care coordinated with Radha Urias PA-C, pls refer to her note above for further detail. This is a 65-year-old female w/ CAD with history of NSTEMI 04/2016 with PCI and LIZZETH to circumflex and LAD, HTN, HLD, postsurgical hypothyroidism, hyperparathyroidism, T2DM, osteoporosis, depression and PTSD who presents to ED at the referral of cardiology due to unstable angina. She was provided ASA and nitro on route but still reporting chest pain 6/10 radiating to neck, CP associated with nausea and diaphoresis. Currently in ED laying in bed, alert and oriented and answering questions appropriately, not requiring any suppl. O2, speaking in full sentences but somewhat uncomfortable d/t chest pain. Heat sounds regular, murmur not noted. Lung sounds clear TAB w/o any wheezing, rhonchi, or crackles. Abdomen is soft, nontender, nondistended, +BS. Pt moves extremities spontaneously, there is no LE edema. Skin is warm, dry. Pt evaluated by cardiology in the ED, plan for cardiac cath. Will continue to follow after the procedure. Samantha Fry MD
[2020-09-30] MEDS ORDERED: niCARdipine HCL INJ 2.5 MG/ML 10 ML AMP ONE (15:02)
[2020-09-30] MEDS ORDERED: fentaNYL citrate 100 MCG/2 ML VIAL ONE (15:02)
[2020-09-30] MEDS ORDERED: HEPARIN (PORCINE) 1000 UNIT/ML 10 ML (CATH LAB USE ONLY) ONE (15:02)
[2020-09-30] MEDS ORDERED: MIDAZOLAM HCL 1 MG/ML 2ML VIAL ONE (15:03)
[2020-09-30] MEDS ORDERED: NITROGLYCERIN/D5W 100MCG/ML 20ML SYR ONE (15:03)
--- NOTE | 2020-09-30 15:03 | Pre Anesthesia Assessment ---
Date of Service September 30, 2020 Pre Sedation Assessment Vital Signs Temp Pulse Resp BP Pulse Ox 09/30/20 14:52 69 14 117/74 94 09/30/20 14:41 71 14 93 09/30/20 14:40 72 14 117/74 95 09/30/20 14:31 71 14 95 09/30/20 14:30 74 12 117/79 94 09/30/20 14:21 74 12 94 09/30/20 14:20 75 12 127/77 93 09/30/20 14:11 81 26 H 97 09/30/20 14:10 79 15 123/87 97 09/30/20 14:01 82 19 95 09/30/20 14:00 81 19 108/76 95 09/30/20 13:51 82 19 119/78 95 09/30/20 13:50 89 18 96 09/30/20 13:48 89 18 98 09/30/20 13:47 86 18 110/81 96 09/30/20 13:40 91 H 17 98 09/30/20 13:34 84 14 94 09/30/20 13:19 84 12 126/87 97 09/30/20 13:17 98.4 F 87 16 126/87 97 Cardiovascular RRR, no murmur, no edema Respiratory normal respiratory effort, lungs clear to auscultation Pre-Sedation Airway Assessment Smoking Status: Former smoker Hx Sleep Apnea: No Hx Difficult Intubation: No Short, Thick Neck: No Thyromental Distance: > or= 3.5 Finger Breadths Oral Cavity: + WNL Mallampati Class: III ASA: ASA3 Procedure Planning Contraindications for Sedation: none Current Medications Reviewed: Yes Notes The planned sedation has been discussed with the patient. Informed Consent was obtained. I have identified the patient, determined the appropriateness of sedation and have assessed the patient immediately prior to the procedure. All medicine(s) and interventions are by my order.
--- NOTE | 2020-09-30 15:45 | Cardiac Catheterization ---
[facility] Data: [employer] Cardiac Status Clinical evaluation leading to the procedure CAD Presenation: Positive Stress Test Anginal Classification: CCS IV Heart Failure: No Cardiogenic Shock within 24 Hours: No Cardiac Arrest within 24 Hours: No Imaging Studies Past 6 Months: Yes Stress Studies Past 6 Months: No Diagnostic Physicians Name: Ck Maria MD Status: Elective Closure Device Percutaneous Entry Location: Radial Closure Device: Radial Band Recommendations: Medical Therapy and/or Counseling Intraprocedure Events Significant Disection: No Perforation: No Cardiac Cath Procedure Full Procedure Date September 30, 2020 Pre-Procedure Diagnosis Pre-Procedure Diagnosis: Positive Stress Test AUC Score AUC Score: 7 Post-Procedure Diagnosis Post-Procedure Diagnosis: Mild CAD, Normal LV Systolic Function and Normal Intracardiac Pressures Procedure(s) Performed Procedure(s) Performed: Coronary Angiography, Left Heart Cath and LV Angiography [place] Ck Maria MD Billet Checker(s) Stiven Estimated Blood Loss Estimated Blood Loss: 10 Medication(s) Medication(s): Fentanyl, Heparin, Lidocaine 1%, Nicardipine, Nitroglycerin and Versed Summary of Findings Indication: Chest discomfort, abnormal stress test Access: 6 Fr slender right radial artery Catheters: [place], pigtail Findings: LM -Short, normal caliber, no significant disease LAD -medium caliber vessel, 30 to 40% proximal disease extending into proximal aspect of prior stent. Mid to distal vessel without significant disease and wraps around apex. Jailed first diagonal with 80% ostial stenosis but ABIGAIL-3 flow. Circumflex -large caliber, mid circumflex stent widely patent, large OM 2 without significant disease RCA -dominant, medium caliber, distal luminal regularities. Small right PDA with mild disease. LVEDP -2 LVEF65%, no regional wall motion normalities Arterial closure: TR band Summary: 1. Mild to moderate coronary artery disease in major epicardial vessels -30 to 40% proximal LAD disease at proximal aspect of previous stent Widely patent mid circumflex stent 2. 70 to 80% ostial stenosis involving small jailed D1 (ABIGAIL-3 flow) 3. Normal LV function. Normal intracardiac filling pressure Recommendations: Further evaluation for noncardiac causes of resting chest discomfort Continued ASCVD risk factor modification Hemodynamics Rest Ao:: 122/73/96 Final Ao: 125/61/90 LV: 129/1 Recommendations Recommendations: Medical Therapy and/or Counseling Specimens Specimens: None Radiation Exposure (mGy) 580 Contrast (mls) 60 Fluids (cc crystalloids) Fluids (cc crystalloids): 48 Drains Drains: None Anesthesia Moderate Procedural Complication(s) None Disposition PCU I attest to the content of the Intraoperative Record and any orders documented therein. Any exceptions are noted below. [facility] Card Cath Procedure Codes Cardiac Catheterization Procedure 1: Cardiovascular Cath Procedures: 25719 Coronaries and LHC (+/-LV) Moderate Sedation Procedure 1: Sedation/Anesthesia: 88624 Mod Sedation by the same physician;Init15 Min Child Age 5 & Up PG Care Time/CCT Total # of Minutes Spent Total Time Spent with Patient: Total time spent is greater than 50% in coordination of care (as documented) at patient's floor/unit and/or counseling patient:
--- NOTE | 2020-09-30 16:01 | Electrocardiogram Report ---
Test Reason : Blood Pressure : / mmHG Vent. Rate : 086 BPM Atrial Rate : 086 BPM P-R Int : 138 ms QRS Dur : 068 ms QT Int : 362 ms P-R-T Axes : 054 -06 015 degrees QTc Int : 433 ms Normal sinus rhythm Possible Inferior infarct , age undetermined Abnormal ECG When compared with ECG of 09-MAY-2018 10:17, Borderline criteria for Inferior infarct are now Present Confirmed by Roberto Abraham ([id number]) on 09/30/2020 4:00:39 PM Referred By: Lm Singh Confirmed By:Roberto Abraham
[2020-09-30] MEDS ORDERED: ONDANSETRON INJ 2 MG/ML 2 ML VIAL IV PRN (16:29)
[2020-09-30] MEDS ORDERED: ALUMINUM/MAGNESIUM SUSP 30 ML UDC PO PRN (16:29)
[2020-09-30] MEDS ORDERED: POLYETHYLENE (MIRALAX) 17 GM PACK PO PRN (16:29)
[2020-09-30] MEDS ORDERED: MAGNESIUM HYDROXIDE SUSP 30 ML UDC PO PRN (16:29)
[2020-09-30] MEDS ORDERED: CARBOHYDRATES FOR HYPOGLYCEMIA PO PRN (16:29)
[2020-09-30] MEDS: LEVOTHYROXINE SODIUM 25 MCG TABLET PO SCH (17:31)
[2020-09-30] MEDS: SPIRONOLACTONE 100 MG TAB PO SCH (17:32)
[2020-09-30] MEDS: VENLAFAXINE HCL XR 75 MG CAPXR PO SCH (17:32)
[2020-09-30] MEDS: METOPROLOL SUCC 25MG EXT REL TAB PO SCH (17:32)
[2020-09-30] MEDS: PANTOprazole 40 MG TAB PO SCH (17:32)
[2020-09-30] MEDS: INSULIN ASPART 100 UNITS/ML 3 ML PEN SC SCH ×2 (17:33→21:21)
[2020-09-30] MEDS ORDERED: ATORVASTATIN 40 MG TAB PO SCH (21:00)
[2020-09-30] MEDS: ACETAMINOPHEN 325 MG TAB PO PRN (21:20)
[2020-09-30] MEDS: INSULIN GLARGINE SOLOSTAR 100 UNITS/ML 3 ML PEN SC SCH (21:21)
[2020-10-01 06:05] LABS: Basophils # (auto) 0.03 K/uL (0-0.2); Basophils % (auto) 0.5 %; Eosinophils # (auto) 0.23 K/uL (0-0.5); Eosinophils % (auto) 3.5 %; Hematocrit (blood only) 41.2 % (37-47); Hemoglobin 14.1 g/dL (12.0-16.0); Immature Granulocytes # (auto) 0.01 K/uL (0.00-0.02); Immature Granulocytes % (auto) 0.2 %; Lymphocytes % (auto) 28.8 %; Mean Corpuscular Hemoglobin 32.4 pg (25-34); Mean Corpuscular Hgb Conc 34.2 g/dL (32-36); Mean Corpuscular Volume 94.7 fL (80-100); Monocytes % (auto) 9.1 %; Neutrophils # (auto) 3.82 K/uL (1.4-6.5); Neutrophils % (auto) 57.9 %; Platelet Count 279 K/uL (130-400); RDW Coefficient of Variation 12.7 % (11.5-14.5); RDW Standard Deviation 44.4 fL (36.4-46.3); Red Blood Count 4.35 M/uL (4.2-5.4); White Blood Count 6.59 K/uL (4.8-10.8)
[2020-10-01 06:13] LABS: Estimated Average Glucose 177 mg/dl; Hemoglobin A1C 7.8 % (4.5-5.6)
[2020-10-01] MEDS: LEVOTHYROXINE SODIUM 25 MCG TABLET PO SCH (06:35)
[2020-10-01 06:42] LABS: Albumin Globulin Ratio 0.9 (0.9-2); Albumin Level 3.5 gm/dl (3.4-5.0); BUN Creatinine Ratio 23.6 (10-20); Calcium 8.9 mg/dl (8.5-10.1); Creatinine Clr Calc Pharmacy 56.3 ml/min; Est GFR (African American) 85.8; Globulin 3.7 gm/dl (2.5-4.0); Magnesium 2.2 mg/dl (1.8-2.4); Total Protein 7.2 gm/dl (6.4-8.2)
[2020-10-01 06:45] LABS: Bilirubin,Total 0.9 mg/dl (0.2-1)
[2020-10-01] MEDS: VENLAFAXINE HCL XR 75 MG CAPXR PO SCH (08:23)
[2020-10-01] MEDS: SPIRONOLACTONE 100 MG TAB PO SCH (08:23)
[2020-10-01] MEDS: PANTOprazole 40 MG TAB PO SCH (08:24)
[2020-10-01] MEDS: INSULIN GLARGINE SOLOSTAR 100 UNITS/ML 3 ML PEN SC SCH (08:26)
[2020-10-01] MEDS: INSULIN ASPART 100 UNITS/ML 3 ML PEN SC SCH ×2 (08:26→12:06)
[2020-10-01] MEDS: METOPROLOL SUCC 25MG EXT REL TAB PO SCH (08:30)
[2020-10-01] MEDS ORDERED: CHOLECALCIFEROL 1,000 UNITS 25 MCG TAB PO SCH (09:00)
[2020-10-01] MEDS ORDERED: buPROPion XL 300 MG TABCR PO SCH (09:00)
[2020-10-01] MEDS ORDERED: ASPIRIN 81 MG ECTAB PO SCH (09:00)
[2020-10-01] MEDS ORDERED: LOSARTAN POTASSIUM 25 MG TAB PO SCH (09:00)
[2020-10-01] MEDS ORDERED: ISOSORBIDE MONO EXTENDED REL 30 MG TABCR PO SCH (09:00)
[2020-10-01] MEDS: ACETAMINOPHEN 325 MG TAB PO PRN (12:08)
--- NOTE | 2020-10-01 13:41 | Cardiology Progress Note ---
Date of Service October 01, 2020 Assessment & Plan (1) Unstable angina: (2) CAD (coronary artery disease): (3) Abnormal stress test: (4) Type 2 diabetes mellitus: (5) PTSD (post-traumatic stress disorder): Cardiac catheterization reveals a pinched diagonal artery without benefit from intervention. Otherwise, no significant obstructive disease. No cardiac source for chest discomfort found, likely anxiety. Recommend follow-up with PCP for further management. Okay to DC to home from a cardiac standpoint. Admission and Anticipated Discharge Date Admission Date: September 30, 2020 Subjective Patient seen and examined, chart reviewed. Feeling relatively well after catheterization. No significant chest discomfort at this time. Patient remains anxious in regards to her children moving to [place]. Denies shortness of breath, palpitations, lightheadedness, dizziness or syncope. Telemetry reviewed: Normal sinus rhythm without arrhythmia or significant ect opy. Review of Systems Review of Systems: All systems reviewed & are unremarkable except as noted in HPI & below Physical Exam Physical Exam: General: Awake, alert and oriented x 3. No acute distress. HEENT: Normocephalic, atraumatic. Pupils equal, round and reactive to light and accommodation. Extraocular muscles are intact. Anicteric sclera. Moist mucous membranes. Neck: No JVD. No bruit. Cardiovascular: Regular. Positive S-4. Normal S-1 and S-2. No S-3. No murmurs or rubs. Pulmonary: Clear to auscultation B/L. No rales, rhonchi or wheezing Abdomen: Bowel sounds x 4, soft. No rebound, guarding or tenderness. No organomegaly. Extremities: No clubbing, cyanosis or edema. +2 pedal pulses bilaterally. Skin: Warm and dry. Results & Data ([facility]) Vital Signs (Past 12 Hours) Vital Signs Temp Pulse Pulse Resp BP Pulse Ox 10/01/20 11:21 36.8 C 69 18 101/65 94 10/01/20 08:00 62 10/01/20 07:08 36.5 C 67 16 104/68 98 10/01/20 04:02 36.7 C 66 16 110/60 97
--- NOTE | 2020-10-01 14:16 | Communication Note ---
Date of Service: October 01, 2020 By CMS guidelines, a determination that a continued hospital stay is not medically necessary has been made by the team. I have reviewed the chart and ag radha as a member of the UR committee. Therefore, a code 44 will be completed and the inpatient admission will be changed to outpatient. Bethany Byrnes DO
--- NOTE | 2020-10-01 14:29 | Hospitalist Progress Note ---
Date of Service October 01, 2020 Assessment & Plan (1) Unstable angina: (2) CAD (coronary artery disease): (3) Abnormal stress test: This is a 65-year-old female who has significant past medical history of CAD with history of NSTEMI 04/2016 with PCI and LIZZETH to circumflex and LAD, HTN, HLD, postsurgical hypothyroidism, hyperparathyroidism, T2DM, osteoporosis, depression and PTSD who presents to ED at the referral of cardiology due to unstable angina. She had a stress echo concerning for ischemia in area of L circumflex territory. S/P emergent cardiac cath with mild to moderate coronary artery disease in major epicardial vessels. 30 to 40% proximal LAD disease at proximal aspect of previous stent. Widely patent mid circumflex stent. 70 to 80% ostial stenosis involving small jailed D1 (ABIGAIL-3 flow) No cardiac source for chest discomfort found as per cardio Chest discomfort might be related to GI or anxiety Continue medical management Total cholesterol 228 and LDL 133 Continue aspirin, statin, and metoprolol Isosorbide Mononitrate 30mg daily added Ok from cardiology standpoint to discharge home (4) Type 2 diabetes mellitus: Most recent Hba1c 7.8 on 10/01/20 Will resume metformin tomorrow On lantus/ and sliding scale novolog per protocol Continue monitor BS (5) Dyslipidemia: continue statin Total cholesterol 228, LDL 133 (6) Depression: PTSD, Depression, Anxiety continue wellbutrin, effexor (7) DVT prophylaxis: SCD/TEDS Disposition Discharge home today By CMS guidelines, a determination that the admission or continued stay is not medically necessary has been made by a member of the UR committee and a physician for this hospital stay, therefore a Code 44 will be completed and the Inpatient admission will be changed to outpatient. Admission and Anticipated Discharge Date Admission Date: September 30, 2020 Subjective Pt was seen and examined for follow up of chest pain Lying in bed with no distress Pt said that she feels fine She said that she wants to go home Denies any chest pain, palpitation, dizziness and SOB Review of Systems Review of Systems: All systems reviewed & are unremarkable except as noted in Subjective Physical Exam Physical Exam: General- No acute distress Head- atraumatic Eyes- PERRL, EOMI, ENT- oropharynx clear Neck- supple, no JVD Lungs- clear to auscultation Heart- regular rhythm; no murmur Abdomen- normal bowel sounds, soft, nontender Extremities- no calf tenderness Neuro- alert, oriented x 3; PERRL, EOMI; no facial palsy; no dysarthria Skin- warm & dry Results & Data Results & Data ([facility]) Vital Signs (Past 12 Hours) Vital Signs Temp Pulse Pulse Resp BP Pulse Ox 10/01/20 11:21 36.8 C 69 18 101/65 94 10/01/20 08:00 62 10/01/20 07:08 36.5 C 67 16 104/68 98 10/01/20 04:02 36.7 C 66 16 110/60 97
--- NOTE | 2020-10-04 13:44 | Discharge Summary ---
Date of Service October 01, 2020 Admission HPI Per Admitting Provider This is a 65-year-old female who has significant past medical history of CAD with history of NSTEMI 04/2016 with PCI and LIZZETH to circumflex and LAD, HTN, HLD, postsurgical hypothyroidism, hyperparathyroidism, T2DM, osteoporosis, depression and PTSD who presents to ED at the referral of cardiology due to unstable angina. She was seen and evaluated in cardiology clinic today secondary to substernal chest discomfort that radiates to neck and throat. Symptoms started last evening at rest. She thought symptoms were related to GERD and was started on Protonix, but did not start this yet. Now she recalls these were similar symptoms to her prior [place] presentation. She also has associated clamminess and nausea. Was unable to tolerate any oral medications today due to nausea. She did not try sublingual nitro with symptoms. She denies any unusual shortness of breath, ACOSTA, orthopnea, PND, edema or chest pain with exertion. Currently pain is 6/10. She had EKG in clinic today which show mild T wave abnormality in inferior leads. According to ER provider she did undergo stress echocardiogram which resulted in worsened chest discomfort. She was therefore referred to ED for further evaluation and cardiac catheterization. There are no stress echo results to review yet. Currently continues to have 6 out of 10 chest pressure. She overall feels anxious prior to planned cardiac catheterization. She denies any recent illness, fever, chills, sweats, lightheadedness, dizziness, syncope, cough, hemoptysis, emesis, abdominal pain, dysuria, increased urgency or frequency with urination, change in bowel or urinary habits. She has been compliant with her medications, except for this morning. He does have history of T2DM in which she recalls her last A1c over 7. Per ED provider patient received 3 sublingual nitroglycerin which did result in some mild hypotension. This was improved with IV fluid. She also received IV fentanyl for pain relief. In route she received 4 ASA. Admission Exam Per Admitting Provider Constitutional: WD/WN, vitals as above, NAD, sitting up in bed, pleasant, conversing easily Head: Normocephalic, Atraumatic Eyes: PERRL, conjunctivae normal, anicteric sclerae ENMT: external ear and nose normal, oropharynx normal Neck: trachea midline, no thyromegaly normal visual inspection Respiratory: normal respiratory effort, lungs clear to auscultation, no wheeze, rales, rhonchi. Normal insp/exp effort, no accessory muscle use Cardiovascular: RRR, no murmur, no edema Vessels: no JVD or carotid bruit Chest: normal inspection of chest Abdomen: normal bowel sounds, soft, nontender, no hepatosplenomegaly Musculoskeletal: no cyanosis or clubbing, extremities motor strength 5/5 Skin: no rashes, warm and dry normal turgor Neurologic: PERRL, EOMI, accommodation nl, no face palsy, no dysarthria CN's II-XI intact bilaterally and moves all extremities Psychiatric: A+Ox3, euthymic affect Lymphatic: no cervical or axillary lymphadenopathy : deferred Principal Diagnosis (1) Unstable angina: (2) CAD (coronary artery disease): (3) Abnormal stress test: (4) Type 2 diabetes mellitus: (5) Dyslipidemia: (6) Depression: Discharge Exam General- No acute distress Head- atraumatic Eyes- PERRL, EOMI, ENT- oropharynx clear Neck- supple, no JVD Lungs- clear to auscultation Heart- regular rhythm; no murmur Abdomen- normal bowel sounds, soft, nontender Extremities- no calf tenderness Neuro- alert, oriented x 3; PERRL, EOMI; no facial palsy; no dysarthria Skin- warm & dry Discharge Data Allergies Allergy/AdvReac Type Severity Reaction Status Date / Time topiramate Allergy Unknown blepharosps Verified 11/25/17 23:47 ams prednisone AdvReac Unknown overly Verified 11/25/17 23:47 emotional reactions Consultations 09/30/20 13:44 ED Decision to Admit Stat 09/30/20 13:58 Consult Cardiology Routine 09/30/20 16:29 Consult Case Management - Discharge Planning Routine Procedures Performed Operation Date: 09/30/20 14:30 Actual Procedures p Cath, Left with Cors and Vent - Shawn Maria MD s Cineradiography w/Routine Exam - Shawn Maria MD Ordered Studies 09/30/20 14:54 CL Cath Imgs for PACS use only Stat XR chest 1V portable CLINICAL HISTORY: Atypical chest pain COMPARISON STUDY: 06/24/2019 FINDINGS: The cardiac and mediastinal contours remain stable. There is no failure. There is no focal pulmonary consolidation. There are no pleural effusions. 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 There is a thoracolumbar scoliosis.[ IMPRESSION: No active disease in the chest. ACT 112: Negative or not required by law. Electronically signed by: Wayne Stern M.D. 09/30/2020 1:37 PM Dictated: 09/30/201335Transcribed: 09/30/201335 Hospital Course (1) Unstable angina: (2) CAD (coronary artery disease): (3) Abnormal stress test: This is a 65-year-old female who has significant past medical history of CAD with history of NSTEMI 04/2016 with PCI and LIZZETH to circumflex and LAD, HTN, HLD, postsurgical hypothyroidism, hyperparathyroidism, T2DM, osteoporosis, depression and PTSD who presents to ED at the referral of cardiology due to unstable angina. She had a stress echo concerning for ischemia in area of L circumflex territory. S/P emergent cardiac cath with mild to moderate coronary artery disease in major epicardial vessels. 30 to 40% proximal LAD disease at proximal aspect of previous stent. Widely patent mid circumflex stent. 70 to 80% ostial stenosis involving small jailed D1 (ABIGAIL-3 flow) No cardiac source for chest discomfort found as per cardio Chest discomfort might be related to GI or anxiety Continue medical management Total cholesterol 228 and LDL 133 Continue aspirin, statin, and metoprolol Isosorbide Mononitrate 30mg daily added Ok from cardiology standpoint to discharge home (4) Type 2 diabetes mellitus: Most recent Hba1c 7.8 on 10/01/20 Will resume metformin tomorrow On lantus/ and sliding scale novolog per protocol Continue monitor BS (5) Dyslipidemia: continue statin Total cholesterol 228, LDL 133 (6) Depression: PTSD, Depression, Anxiety continue wellbutrin, effexor (7) DVT prophylaxis: SCD/TEDS Disposition Discharge home today By CMS guidelines, a determination that the admission or continued stay is not medically necessary has been made by a member of the UR committee and a physician for this hospital stay, therefore a Code 44 will be completed and the Inpatient admission will be changed to outpatient. Total Time Total Time Spent Total Time Spent (In Minutes): 35 minutes Total Time Includes: Examination of the Patient, Discharge Planning, Medication Reconciliation, Communication With Other Providers and Other Discharge Plan Discharge Items Patient Disposition: Home - Self-Care Reason For Visit: UNSTABLE ANGINA Discharge Diagnosis: Chest pain Abnormal stress test: Type 2 diabetes mellitus: Dyslipidemia: Activity: Resume your previous activity Non-emergency contact: Primary Care Provider Call non-emergency contact if: you have any medication questions Follow-up/Referrals: Pushpa Singh DO [Primary Care Provider] - (Date & Time 10/04/2020 11:10 AM Provider Pushpa Singh DO [facility] ) Diet: Carb Consistent or DM2 Addtl Attending Provider Instructions: Follow up with your primary care provider dr. Singh on 10/04/2020 at 11:10 AM Follow up with your cardiology outpatient Your physician will refer you to gastroenterology for evaluation for reflux if no improvement with the pantoprazole Seek medical attention if your symptoms reoccurs Follow a healthy diabetes diet and limited concentrated sweet intake Continue monitor your blood pressure and bring your blood pressure log at your next appointment with your provider Keep the area for the cardiac cath clean and dry to avoid any infection Do not use creams, lotions or ointment on the wound site Do not take a bath, tub soak, go in a Jacuzzi, or swim in a pool or todd for one week after the procedure. Do not participate in strenuous activities for 3 days after the procedure. Gradually increase your activities until you reach your normal activity level within two days after the procedure. Avoid heavy lifting (more than 10 pounds) and pushing or pulling heavy objects for the first 5 days after the procedure. Pending Studies at Discharge: No Stand-Alone Forms: My [facility], Smoking Cessation Medications and DC Order Prescriptions: New pantoprazole 40 mg Tablet,Delayed Release (Dr/Ec) 40 mg PO QAM 30 Days Qty: 30 RF: 0 isosorbide mononitrate 30 mg Tablet Extended Release 24 Hr 30 mg PO QAM 30 Days Qty: 30 RF: 0 Continued atorvastatin 80 mg Tablet 80 mg PO HS RF: 0 venlafaxine 75 mg Capsule,Extended Release 24hr 75 mg PO DAILY RF: 0 clonazepam 0.5 mg Tablet 0.5 mg PO TID PRN (Reason: Anxiety) RF: 0 spironolactone 100 mg Tablet 100 mg PO DAILY RF: 0 metformin 850 mg Tablet 850 mg PO DAILY RF: 0 aspirin 81 mg Tablet,Delayed Release (/Ec) 81 mg PO DAILY RF: 0 levothyroxine 25 mcg Tablet 25 mcg PO DAILY RF: 0 losartan 25 mg Tablet 12.5 mg PO DAILY RF: 0 metoprolol succinate 25 mg Tablet Extended Release 24 Hr 25 mg PO DAILY RF: 0 bupropion HCl 300 mg Tablet Extended Release 24 Hr 300 mg PO QAM RF: 0 cholecalciferol (vitamin D3) 25 mcg (1,000 unit) Tablet 25 mcg PO DAILY RF: 0 Discharge Orders: Discharge Order (Routine); Ordered 10/01/20 Ordered By: Michelle Ferrer/Other Patient Handouts: Managing Type 2 Diabetes, Managing Diabetes: The A1C Test Admission Data Admit Date/Time: 09/30/20 16:25 Attending Provider: Michelle Ratliff Admit Provider: Bennett Fyr Primary Care Provider: Pushpa Singh Other Providers: Oz Hedrick Andrea F. Other Interventions: Discharge Summary Assessment (RN) Last Done: 10/01/20 16:34
== END 2020-10-01 16:53 | disposition home or self-care (01) ==
LOC: ED 13:07 → CC 14:52 → 2S 14:52 → INTOOBSV 16:25 → 2S 16:25 → SUATTDRO 16:25